=== PATIENT | female | born 1955 | race African-American/Black ===

== ENCOUNTER 2020-03-22 09:39 | Outpatient (CLI) | payer BC, SELFPAY ==
--- NOTE | ~2020-03-22 | MM_ITS ---
EXAMINATION: MM screening mango BI w arlette HISTORY: Screening mammogram TECHNIQUE: Craniocaudal and mediolateral oblique 3-D tomosynthesis images were obtained and synthetic 2-D images were generated. CAD analysis was submitted and interpreted. COMPARISON: 12/09/2018, 08/14/2017 bilateral digital screening mammogram examinations BREAST PARENCHYMAL COMPOSITION: The breasts are almost entirely fatty. FINDINGS: There is no evidence of suspicious mass, calcification, or architectural distortion to sugg est malignancy in either breast. There has been no suspicious interval change. IMPRESSION: 1. No mammographic evidence of malignancy. 2. Recommend routine screening mammography in one year. BI-RADS Category 1: Negative Reviewed, dictated and finalized at location A.
== END 2020-03-22 09:40 | disposition home or self-care (01) ==
PROVIDERS: PCP Family Medicine; Visit Provider Family Medicine
DX: Z12.31 Encounter for screening mammogram for malignant neoplasm of breast (principal)
CPT/HCPCS: 77063; 77067

== ENCOUNTER 2020-10-29 10:51 | Outpatient (CLI) | payer BC, SELFPAY ==
--- NOTE | ~2020-10-29 | XR_ITS ---
EXAMINATION: XR foot LT 2V, XR ankle LT 2V EXAM DATE: 10/29/2020 12:14 INDICATION: Multijoint pain. TECHNIQUE: Left foot frontal and lateral projections. Left ankle frontal and lateral projections. T here is no prior study for comparison. FINDINGS: There is sequela from prior left malleolar avulsion injuries. The ankle mortise appears in tact. No metatarsal stress fractures. There are no acute fractures or dislocations identified. Ther e is no subcutaneous gas. The soft tissue is unremarkable. There are no radiopaque foreign bodies. IMPRESSION: Unremarkable left foot, ankle exam. Reviewed, dictated and finalized at location A. METALS ENGRAVER HAND IMPRESSION: Unremarkable left foot, ankle exam.
--- NOTE | ~2020-10-29 | XR_ITS ---
EXAMINATION: XR sacroiliac joints min 3V EXAM DATE: 10/29/2020 12:14 INDICATION: Multijoint pain. TECHNIQUE: Frontal and bilateral oblique projections of the sacroiliac joints. There is no prior st udy for comparison. FINDINGS: Mild symmetric bilateral sacroiliac osteoarthritis. No sclerosis or erosions along the mar gins. Sacrum, sacroiliac joints, sacral arcuate lines are intact. There is mild bilateral hip primary osteoarthritis. IMPRESSION: Mild sacroiliac and hip osteoarthritis. Reviewed, dictated and finalized at location A. S SERVICE EXECUTIVE
--- NOTE | ~2020-10-29 | XR_ITS ---
EXAMINATION: XR ankle RT 2V, XR foot RT 2V EXAM DATE: 10/29/2020 12:14 INDICATION: Multijoint pain. TECHNIQUE: Right foot frontal and lateral projections. Right ankle frontal and lateral projections. There is no prior study for comparison. FINDINGS: The right ankle mortise appears intact. There is tiny inferior calcaneal spur. Metatarsal bones are unremarkable. No evidence of stress fracture. There are no acute fractures or dislocations identified. There is no subcutaneous gas. The soft tissue is unremarkable. There are no radiopaqu e foreign bodies. IMPRESSION: Tiny right calcaneal inferior spur. Reviewed, dictated and finalized at location A. ICAL PATHOLOGIST IMPRESSION: Tiny right calcaneal inferior spur.
--- NOTE | ~2020-10-29 | XR_ITS ---
EXAMINATION: XR wrist LT 2V, XR hand LT 2V EXAM DATE: 10/29/2020 12:14 INDICATION: Multiple joint pain . TECHNIQUE: Left wrist frontal and lateral projections. Left hand frontal and lateral projections. Co rrelation is made to contralateral exam same day. FINDINGS: Mild primary osteoarthritis at the left triscaphe joint, and multiple interphalangeal joint s. There are no bony erosions identified. There are no acute fractures or dislocations identified. T here is no subcutaneous gas. The soft tissue is unremarkable. There are no radiopaque foreign bodi es. IMPRESSION: Mild polyarticular left interphalangeal, triscaphe osteoarthritis. Reviewed, dictated and finalized at location A. IALIST PHYSICIAN IMPRESSION: Mild polyarticular left interphalangeal, triscaphe osteoarthritis.
--- NOTE | ~2020-10-29 | XR_ITS ---
EXAMINATION: XR wrist RT 2V, XR hand RT 2V EXAM DATE: 10/29/2020 12:14 INDICATION: Multiple joint pain. TECHNIQUE: Right hand frontal and lateral projections. Right wrist frontal and lateral projections. T here are no prior studies for comparison. FINDINGS: There is mild to moderate right 1st interphalangeal, otherwise mild interphalangeal and 1st carpometacarpal primary osteoarthritis. There are no bony erosions identified. There are no acute fr actures or dislocations identified. There is no subcutaneous gas. The soft tissue is unremarkable. There are no radiopaque foreign bodies. 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 Reviewed, dictated and finalized at location A. 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
== END 2020-10-29 10:52 ==
PROVIDERS: PCP Family Medicine
DX: M25.50 Pain in unspecified joint (principal); R53.81 Other malaise; M79.10 Myalgia, unspecified site; M89.49 Other hypertrophic osteoarthropathy, multiple sites; M77.32 Calcaneal spur, left foot; M77.31 Calcaneal spur, right foot
CPT/HCPCS: 72202; 73100; 73120; 73600; 73620

== ENCOUNTER 2024-05-20 19:36 | Observation (INO) | payer MEDICARE, SELFPAY ==
--- NOTE | ~2024-05-20 | XR_ITS ---
EXAMINATION: XR chest 2V DATE: 05/20/2024 20:26 INDICATION: Mid anterior chest pain TECHNIQUE: PA and lateral views of the chest were obtained. COMPARISON: Chest radiograph dated 10/02/2017 FINDINGS: Unchanged mild linear discoid atelectasis at the lingula with mild elevation the left hemidiaphragm. No new airspace opacities, pulmonary edema, pleural effusion or pneumothorax. The cardiomediastinal s ilhouette is normal. Mild thoracic spondylosis. IMPRESSION: 1. Unchanged mild lingular discoid atelectasis/scarring. No acute cardiopulmonary disease. Reviewed, dictated and finalized at location A. IMPRESSION: 1. Unchanged mild lingular discoid atelectasis/scarring. No acute cardiopulmona ry disease.
--- NOTE | 2024-05-20 19:38 | ECG_ITS ---
Test Date: 2024-05-20 19:55:34 Measurements Intervals [place] Rate: 58 P: 31 AR: 150 QRS: -37 QRSD: 158 T: -16 QT: 419 QTc: 413 Interpretive Statements SINUS BRADYCARDIA WITH SINUS ARRHYTHMIA MARKED LEFT AXIS DEVIATION [QRS AXIS < -30] RIGHT BUNDLE BRANCH BLOCK [120+ ms QRS DURATION, UPRIGHT V1, 40+ ms S IN I/aVL/V4/V5/V6] VOLTAGE CRITERIA FOR LVH [MEETS CRITERIA IN ONE OF: R(aVL), S(V1), R(V5), R(V5/V6)+S(V1)] PROBABLE LATERAL MYOCARDIAL INFARCTION , OF INDETERMINATE AGE [35 ms Q WAVE IN I/aVL/V5/V6] No previous ECG available for comparison Electronically Signed On 05-21-2024 15:52:36 CDT by Juan Carlos Parker M.D.
[2024-05-20 20:37] VITALS: PULSE 83
--- NOTE | 2024-05-20 20:37 | ED.GENADULT ---
HPI - General Adult General Chief complaint: Chest Pain Stated complaint: chest pain Time Seen by Provider: 05/20/24 19:52 History of Present Illness HPI narrative: patient is a 69-year-old female presents complaining department chief complaint of chest pain. Patient reports that she started having pain in her left breast that radiated to her back the patient states the pain was initially sharp reports that it is still there. The patient reports that she has had a stress test done and [facility] and has seen cardiology. The patient reports that she did have some nausea with this and reports that she felt lightheaded whenever the symptoms were happening. The patient states that she did not have diaphoresis and did not have shortness of breath. Related Data Home Medications Medication Instructions Recorded Confirmed alendronate 70 mg tablet 70 mg PO WEEKLY 05/21/24 05/21/24 amlodipine 10 mg-benazepril 40 mg 1 cap PO DAILY 05/21/24 05/21/24 capsule aspirin 81 mg capsule 81 mg PO DAILY 05/21/24 05/21/24 dorzolamide 2 % eye drops 1 drp EACH EYE HS 05/21/24 05/21/24 ezetimibe 10 mg tablet 10 mg PO DAILY 05/21/24 05/21/24 hydrocodone 5 mg-acetaminophen 325 1 tablet PO PRN PRN Pain 05/21/24 05/21/24 mg tablet metformin 500 mg tablet 500 mg PO BID 05/21/24 05/21/24 metoprolol succinate 25 mg 25 mg PO DAILY 05/21/24 05/21/24 tablet,extended release 24 hr rosuvastatin 20 mg tablet 20 mg PO HS 05/21/24 05/21/24 Allergies Allergy/AdvReac Type Severity Reaction Status Date / Time No Known Allergies Allergy Verified 05/21/24 00:27 Review of Systems Review of Systems: A 10 system review of systems was completed on the patient and is negative except for what is stated in the HPI. Nursing and ancillary documentation was reviewed. Exam Narrative: GENERAL: Well-appearing, well-nourished, and in no acute distress. HEAD: Normocephalic, atraumatic. EYES: PERRLA and EOMI. ENT: Nares clear, no rhinorrhea or epistaxis. Mucous membranes moist. NECK: Supple. CHEST: Clear to auscultation. No respiratory distress. HEART: Regular rate and rhythm. No murmur heard. Normal peripheral pulses. ABDOMEN: Soft, nontender, nondistended, normal active bowel sounds. EXTREMITIES: Normal range of motion. No edema. SKIN: Warm, dry, no rash. NEURO: No focal deficits. Alert and oriented x3. PSYCH: Normal mood and affect. Course Vital Signs Vital signs: Vital Signs Pulse Rate 83 05/20/24 20:37 Pulse Rate 82 05/20/24 23:56 Respiratory Rate 18 05/20/24 23:56 Blood Pressure 134/72 05/20/24 23:56 Pulse Oximetry 98 05/20/24 23:56 Medical Decision Making MDM Narrative Medical decision making narrative: differential diagnosis includes ACS, unstable angina, patient's EKG showed a bifascicular block. Initial troponin was negative CBC was within normal limits. Lipase was slightly elevated 346 Vital Signs Vital Signs: Vital Signs Pulse Rate 83 05/20/24 20:37 Pulse Rate 82 05/20/24 23:56 Respiratory Rate 18 05/20/24 23:56 Blood Pressure 134/72 05/20/24 23:56 Pulse Oximetry 98 05/20/24 23:56 Lab Data 05/20/24 20:00 05/20/24 20:00 Labs: Lab Results 05/20/24 05/20/24 Range/Units 20:00 23:14 WBC 9.3 (4.5-10.0) K/mm3 RBC 4.89 (4.2-5.4) M/mm3 Hgb 13.1 (12.0-15.0) g/dL Hct 41.4 (37.0-47.0) % MCV 84.7 (80-100) fl MCH 26.8 (26-34) pg MCHC 31.6 L (32-36) g/dl RDW 15.4 H (11.5-14.5) % Plt Count 265 (150-375) k/mm3 MPV 10.1 (7.4-10.4) fl Immature Gran % (Auto) 0.4 (0-0.5) % Neut % (Auto) 81.7 H (45.5-73.1) % Lymph % (Auto) 13.6 L (18.3-44.2) % [place] % (Auto) 2.8 (2.6-8.5) % Eos % (Auto) 1.1 (0-4.4) % Baso % (Auto) 0.4 (0.2-1.2) % Lymph # (Auto) 1.27 (0.9-3.2) K/mm3 [place] # (Auto) 0.3 (0.1-0.6) K/mm3 Eos # (Auto) 0.1 (0-0.3) K/mm3 Baso # (A
[2024-05-20 20:39] VITALS: BP 150/115; PULSE 81; RESP 20; O2SAT 100
[2024-05-20] MEDS: NITROGLYCERIN SL 0.4 MG TABLET SUBLINGUAL (20:39)
[2024-05-20] MEDS: Please add drug allergy info to patient profile. 1 EACH XX (20:39)
[2024-05-20 20:44] VITALS: BP 142/81; PULSE 81; RESP 24; O2SAT 98
[2024-05-20 21:43] VITALS: BP 142/79; PULSE 89; RESP 21; O2SAT 100
[2024-05-20 21:48] LABS: Basophils Percent Auto 0.4 % (0.2-1.2); Eosinophils Absolute Auto 0.1 K/mm3 (0-0.3); Eosinophils Percent Auto 1.1 % (0-4.4); Hematocrit 41.4 % (37.0-47.0); Hemoglobin 13.1 g/dL (12.0-15.0); Immature Granulocyte Absolute 0.04 K/mm3 (0.00-0.031); Immature Granulocyte Percent A 0.4 % (0-0.5); Lymphocytes Absolute Auto 1.27 K/mm3 (0.9-3.2); Lymphocytes Percent Auto 13.6 % (18.3-44.2); Mean Corpuscular HGB Conc 31.6 g/dl (32-36); Mean Corpuscular Hemoglobin 26.8 pg (26-34); Mean Corpuscular Volume 84.7 fl (80-100); Mean Platelet Volume 10.1 fl (7.4-10.4); Monocytes Absolute Auto 0.3 K/mm3 (0.1-0.6); Monocytes Percent Auto 2.8 % (2.6-8.5); Neutrophils Absolute Auto 7.6 K/mm3 (1.3-6.7); Neutrophils Percent Auto 81.7 % (45.5-73.1); Platelet Count Result 265 k/mm3 (150-375); Red Blood Count 4.89 M/mm3 (4.2-5.4); Red Cell Distribution Width 15.4 % (11.5-14.5); White Blood Count 9.3 K/mm3 (4.5-10.0)
[2024-05-20 21:58] LABS: Alanine Aminotransferase 20 U/L (6-35); Albumin Level 4.9 g/dL (3.5-5.1); Alkaline Phosphatase 67 U/L (38-126); Anion Gap 16 mmol/L (4-12); Aspartate Amino Transferase 34 U/L (14-36); Bilirubin,Total 0.5 mg/dL (0.2-1.3); Blood Urea Nitrogen 11 mg/dL (7-17); Calcium 9.4 mg/dL (8.4-10.2); Carbon Dioxide 23 mmol/L (22-30); Chloride 102 mmol/L (98-107); Estimated CRCL calculation 80 ml/min; Estimated Glomerular Filt Rate > 60; Glucose 149 mg/dL (65-110); Lipase 346 U/L (23-300); Potassium 3.8 mmol/L (3.4-5.0); Sodium 141 mmol/L (137-145)
[2024-05-20 21:59] LABS: Partial Thromboplastin Time 25.2 Seconds (22.3-36.8); Prothrombin Time 13.1 Seconds (11.1-14.7)
[2024-05-20 22:10] LABS: Troponin I < 0.012 ng/mL (0.000-0.034)
[2024-05-20 23:39] LABS: Troponin I < 0.012 ng/mL (0.000-0.034)
[2024-05-20 23:56] VITALS: BP 134/72; PULSE 82; RESP 18; O2SAT 98
[2024-05-21] VITALS (12 sets, daily range): BP systolic 118–146; BP diastolic 67–76; PULSE 61–84; RESP 14–21; TEMP 36.4–36.8; O2SAT 97–100
[2024-05-21] MEDS: HYDROcodone/acetaminophen (*CRX) 5-325 MG TABLET 1 TAB PO (00:42)
[2024-05-21 02:23] LABS: Troponin I < 0.012 ng/mL (0.000-0.034)
--- NOTE | 2024-05-21 02:31 | ADMGEN ---
This patient, Paola Lopez, was admitted to IMU Room 200-01 at 0208. Patient/family oriented to hospital policies and general routines including ID bracelet, bed and alarms, visiting hours, pain management, procedures, bathroom and other care routines, personal items, smoking policy, room service/diet, and visiting hours. Information on how to activate the Rapid Response Team has been discussed. Patient/Family are encouraged to report perceived risks to care and to ask questions if they do not understand what they are told or what they should do.
[2024-05-21 07:50] LABS: Glucose Point of Care 107 mg/dl (65-105)
[2024-05-21] MEDS: ASPIRIN 81 MG CHEWABLE TABLET PO (08:12)
[2024-05-21 10:14] LABS: Cholesterol 109 mg/dL (0-200); HDL Direct 28 mg/dL; Triglycerides 423 mg/dL (<150)
[2024-05-21 10:24] LABS: LDL Cholesterol Direct 40 mg/dL
--- NOTE | 2024-05-21 13:54 | PM.CNCAR ---
Assessment and Plan Assessment and plan (1) Chest pain: Code(s): R07.9 - Chest pain, unspecified Status: Acute Assessment and Plan: Chest pain is atypical. EKG without ischemic changes. Troponins negative x 3. Stress test in December 2023 negative per patient. At this time, she does not need further inpatient cardiac testing. Recommend outpatient follow up with her audiovisual librarian. Consider GI etiology -- has epigastric tenderness, lipase mildly elevated. Chest pain started about 45 minutes after eating when she laid down. Recommendations and plan discussed with Hospitalist. Cardiology will sign off at this time. Please call us back if needed. History of Present Illness History of Present Illness Consult date/time: 05/21/24 13:54 Requesting physician: Chelsie Braswell MD Consult reason: chest pain Reason For Visit: chest pain Narrative: Paola is a 69 year old female who presented with chest pain. She had finished eating around 5:15 PM, and then laid down around 6PM. Developed substernal / epigastric chest pain that was sharp, diffuse across the chest. Currently she is chest pain free. Had a stress test in December 2023 at [facility], that she notes was normal. Had an echocardiogram done subsequently, however, she does not remember the results of the echo. She is currently feeling well. EKG shows sinus rhythm with RBBB. No prior EKG available for comparison. Troponins are negative x 3. Lipase elevated at 346. Review of Systems Review of Systems: All systems reviewed & are unremarkable except as noted in HPI and below (HPI) [facility] Family History Family History Sibling Hypertension Kidney transplant recipient Mother Cervical cancer Social History Social History Smoking packs per day: 0.5 Smoking cigarettes per day: 10.0 Years smoked: 19 Smoking pack-years: 9.50 Smoking status: Former smoker Alcohol intake: never Substance use: never Do You Feel Safe in your Home?: Yes Lack of Transportation: No Lack of Food: Never True Current Housing: I Have Housing Concerned About Future Housing: No Difficulty Paying Gas/Electric Bills: No Difficulty Paying for Meds: No Currently Unemployed: No Education: High School Diploma/GED Difficulty w/ Childcare or Family Care: No Spiritual care concerns: No Meds Home Medications and Allergies Home Medications Medication Instructions Recorded Confirmed Type alendronate 70 mg tablet 70 mg PO WEEKLY 05/21/24 05/21/24 History amlodipine 10 mg-benazepril 40 mg 1 cap PO DAILY 05/21/24 05/21/24 History capsule aspirin 81 mg capsule 81 mg PO DAILY 05/21/24 05/21/24 History dorzolamide 2 % eye drops 1 drp EACH EYE HS 05/21/24 05/21/24 History ezetimibe 10 mg tablet 10 mg PO DAILY 05/21/24 05/21/24 History hydrocodone 5 mg-acetaminophen 325 1 tablet PO PRN PRN Pain 05/21/24 05/21/24 History mg tablet metformin 500 mg tablet 500 mg PO BID 05/21/24 05/21/24 History metoprolol succinate 25 mg 25 mg PO DAILY 05/21/24 05/21/24 History tablet,extended release 24 hr rosuvastatin 20 mg tablet 20 mg PO HS 05/21/24 05/21/24 History Allergies Allergy/AdvReac Type Severity Reaction Status Date / Time No Known Allergies Allergy Verified 05/21/24 00:27 Vital Signs Vital Signs - 24 hr 05/20/24 20:37 05/20/24 20:39 05/20/24 20:44 Temperature Pulse Rate 83 81 81 Respiratory Rate 20 24 H Blood Pressure 150/115 H 142/81 H Pulse Oximetry 100 98 Oxygen Delivery 05/20/24 21:43 05/20/24 23:56 05/21/24 01:40 Temperature 36.8 C Pulse Rate 89 82 76 Respiratory Rate 21 H 18 21 H Blood Pressure 142/79 H 134/72 130/71 Pulse Oximetry 100 98 98 Oxygen Delivery 05/21/24 02:08 05/21/24 02:00 05/21/24 02:31 Temperature 36.5 C Pulse Rate 82 77 Respiratory Rate 21 H Blood Pressure 146/67 H Pulse Oximetr
--- NOTE | 2024-05-21 13:58 | PM.SD2 ---
Same Day Admit/Disch: HPI History of Present Illness Chief complaint: chest pain Narrative: Paola Lopez is a 69 year old female admitted with chest pain central chest area worse on lying down. Pt describes pain moving to her neck. not associated with sob, nausea or sweating. Pt had recent stress test done at [facility] and has seen cardiology there. Stress test done there was negative. After discussion with cardiology MD - chest pain appear more atypical in nature either gastritis or pancreatitis related. No cardiac is nature no need for any further cardiac investigations. Pt prefers to go home advised plan foods and PPI and less fatty foods as her triglycerides are high and her lipase is slightly elevated. [facility] Family History Family History Sibling Hypertension Kidney transplant recipient Mother Cervical cancer Social History Social History Smoking packs per day: 0.5 Smoking cigarettes per day: 10.0 Years smoked: 19 Smoking pack-years: 9.50 Smoking status: Former smoker Alcohol intake: never Substance use: never Do You Feel Safe in your Home?: Yes Lack of Transportation: No Lack of Food: Never True Current Housing: I Have Housing Concerned About Future Housing: No Difficulty Paying Gas/Electric Bills: No Difficulty Paying for Meds: No Currently Unemployed: No Education: High School Diploma/GED Difficulty w/ Childcare or Family Care: No Spiritual care concerns: No Same Day Admit/Disch: Med Pre-admit Medications Home Medications Medication Instructions Recorded Confirmed Type alendronate 70 mg tablet 70 mg PO WEEKLY 05/21/24 05/21/24 History amlodipine 10 mg-benazepril 40 mg 1 cap PO DAILY 05/21/24 05/21/24 History capsule aspirin 81 mg capsule 81 mg PO DAILY 05/21/24 05/21/24 History dorzolamide 2 % eye drops 1 drp EACH EYE HS 05/21/24 05/21/24 History ezetimibe 10 mg tablet 10 mg PO DAILY 05/21/24 05/21/24 History hydrocodone 5 mg-acetaminophen 325 1 tablet PO PRN PRN Pain 05/21/24 05/21/24 History mg tablet metformin 500 mg tablet 500 mg PO BID 05/21/24 05/21/24 History metoprolol succinate 25 mg 25 mg PO DAILY 05/21/24 05/21/24 History tablet,extended release 24 hr rosuvastatin 20 mg tablet 20 mg PO HS 05/21/24 05/21/24 History Review of Systems Review of Systems Mild chest pain, all other 12 systems are reviewed and negative Exam Const: General: cooperative, healthy appearing and overweight; No in distress Nutritional Appearance: overweight Orientation/consciousness: oriented to person HENMT: Head: normal to inspection Resp: Effort & Inspection: no respiratory distress Auscultation: no rhonchi and no wheezes Cardio: Rate: regular rate Rhythm: regular rhythm GI: Inspection: normal to inspection GI Palp: No abdominal tenderness, No Guarding due to palpation present (GI) and No Hepatomegaly present Auscultation: normal bowel sounds Neuro: General: oriented to person DS: Data Data Completed and Pending Labs on day of discharge: Labs from last 24 hours 05/21/24 05/21/24 05/20/24 07:36 01:57 23:14 WBC RBC Hgb Hct MCV MCH MCHC RDW Plt Count MPV Immature Gran % (Auto) Neut % (Auto) Lymph % (Auto) [place] % (Auto) Eos % (Auto) Baso % (Auto) Lymph # (Auto) [place] # (Auto) Eos # (Auto) Baso # (Auto) Abs Immat Gran (auto) Absolute Neuts (auto) Absolute Nucleated RBC Nucleated RBC % PT INR APTT Sodium Potassium Chloride Carbon Dioxide Anion Gap BUN Creatinine Estim Creat Clear Calc Estimated GFR Glucose POC Capillary Glucose 107 H Calcium Total Bilirubin AST ALT Alkaline Phosphatase Troponin I < 0.012 < 0.012 Total Protein Albumin Triglycerides 423 H Cholestero
== END 2024-05-21 15:17 | disposition home or self-care (01) ==
LOC: ANHED 05-21 00:14 → ANHIMU 05-21 02:01
PROVIDERS: Admitting Provider Internal Medicine; Emergency Provider Emergency Medicine; PCP Family Medicine; Visit Provider Family Medicine
DX: R07.9 Chest pain, unspecified (principal); M54.9 Dorsalgia, unspecified; Z79.82 Long term (current) use of aspirin; Z87.891 Personal history of nicotine dependence
CPT/HCPCS: 36415; 71046; 80053; 80061; 82948; 83690; 84484; 85025; 85610; 85730; 93005; 99285; A9270; G0378

== ENCOUNTER 2024-10-27 16:16 | Emergency (ER) | payer OTHER, MEDICARE, SELFPAY ==
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
--- OUTSIDE RECORDS SUMMARY | 2024-10-27 16:41 | XMS_ITS | Encounter Summary ---
Author Organization [facility] Facility Care Team Providers Care Viscose Cellar Worker Name Role Phone Esperanza Kowalski MD Primary Care Provider [phone] Unknown, Notinfile Primary Care Provider Unavail able Esperanza Kowalski MD Primary Care Provider [phone] Unknown, Notinfile Primary Care Provider Unavail able Esperanza Kowalski MD Primary Care Provider [phone] Jase Farias MD Primary Care Provider [phone] Maximilian Parish MD Primary Care Provider Jase Farias MD Primary Care Provider [phone] Encounter Details Date Type Department Care Team (Latest Contact Info) Description 09/15/2016 Orders Only [facility] CLINCONV ProviderNickolas MD [address] [place] [id number] Social History Tobacco Use Types Packs/Day Years Used Date Smoking Tobacco: Never Assessed Comments Unknown Sex and Gender Information Value Date Recorded Sex Assigned at Not on file Legal Sex Female 11:52 PM FAMILY SERVICE AIDE Gender Identity Not on file Sexual Orientation Not on file documented as of this encounter Plan of Treatment Not on file documented as of this encounter Procedures Procedure Name Priority Date/Time Associated Diagnosis Comments SCAN - LABS 09/15/2016 12:00 AM FAMILY SERVICE AIDE documented in this encounter Results * SCAN - LABS (09/15/2016 12:00 AM FAMILY SERVICE AIDE) Narrative 09/15/2016 12:00 AM FAMILY SERVICE AIDE Ordered by an unspecified provider. us Historical Provider Final Res ult documented in this encounter Visit Diagnoses Not on filedocumented in this encounter Additional Health Concerns Infection Onset Date Last Indicated Resolved Time COVID19 Comment:Results from 09/17 verified and to be scanned in. 09/27/2020 09/27/2020 10/20/2020 3:05 AM FAMILY SERVICE AIDE COVID: Recovered Comment:Added based on recent COVID infection. 10/20/2020 10/29/2020 02/17/2021 3:05 AM C DT documented as of this encounter Care Teams Viscose Cellar Worker Relationship Specialty Start Date End Date Esperanza Kowalski MD PCP - General 01/22/17 07/17/17 Unknown, Notinfile PCP - General 07/18/17 07/18/17 Esperanza Kowalski MD PCP - General 07/19/17 10/16/17 Unknown, Notinfile PCP - General 10/17/17 02/17/18 Esperanza Kowalski MD PCP - General 02/18/18 10/27/19 Jase Farias MD PCP - General Family Medicine 10/28/19 10/09/22 Maximilian Parish MD PCP - General Family Medicine 10/10/22 03/27/23 Jase Farias MD PCP - General Family Medicine 01/17/24 documented as of this encounter
--- OUTSIDE RECORDS SUMMARY | 2024-10-27 16:41 | XMS_ITS | Encounter Summary ---
Author Organization [facility] Facility Care Team Providers Care Installers Mechanical Name Role Phone Esperanza Kowalski MD Primary Care Provider [phone] Unknown, Notinfile Primary Care Provider Unavail able Esperanza Kowalski MD Primary Care Provider [phone] Unknown, Notinfile Primary Care Provider Unavail able Esperanza Kowalski MD Primary Care Provider [phone] Jase Farias MD Primary Care Provider Maximilian Parish MD Primary Care Provider [phone] Jase Farias MD Primary Care Provider [phone] Encounter Details Date Type Department Care Team (Latest Contact Info) Description 08/07/2016 Orders Only [facility] CLINCONV ProviderNickolas MD [address] [place] [id number] Social History Tobacco Use Types Packs/Day Years Used Date Smoking Tobacco: Never Assessed Comments Unknown Sex and Gender Information Value Date Recorded Sex Assigned at Not on file Legal Sex Female 11:52 PM SUCTION ROLLER Gender Identity Not on file Sexual Orientation Not on file documented as of this encounter Plan of Treatment Not on file documented as of this encounter Procedures Procedure Name Priority Date/Time Associated Diagnosis Comments SCAN - LABS 08/08/2016 12:00 AM SUCTION ROLLER documented in this encounter Results * SCAN - LABS (08/08/2016 12:00 AM SUCTION ROLLER) Narrative 08/08/2016 12:00 AM SUCTION ROLLER Ordered by an unspecified provider. us Historical Provider Final Res ult documented in this encounter Visit Diagnoses Not on filedocumented in this encounter Additional Health Concerns Infection Onset Date Last Indicated Resolved Time COVID19 Comment:Results from 09/17 verified and to be scanned in. 09/27/2020 09/27/2020 10/20/2020 3:05 AM SUCTION ROLLER COVID: Recovered Comment:Added based on recent COVID infection. 10/20/2020 10/29/2020 02/17/2021 3:05 AM C DT documented as of this encounter Care Teams Installers Mechanical Relationship Specialty Start Date End Date Esperanza [...]
--- OUTSIDE RECORDS SUMMARY | 2024-10-27 16:41 | XMS_ITS | Encounter Summary ---
Author Organization [facility] Facility Care Team Providers Care Hides Soaker Name Role Phone Esperanza Kowalski MD Primary Care Provider [phone] Unknown, Notinfile Primary Care Provider Unavail able Esperanza Kowalski MD Primary Care Provider [phone] Unknown, Notinfile Primary Care Provider Unavail able Esperanza Kowalski MD Primary Care Provider [phone] Jase Farias MD Primary Care Provider [phone] Maximilian Parish MD Primary Care Provider [phone] Jase Farias MD Primary Care Provider [phone] Encounter Details Date Type Department Care Team (Latest Contact Info) Description 05/08/2016 Orders Only [facility] ProviderNickolas MD [address] [place] [id number] Social History Tobacco Use Types Packs/Day Years Used Date Smoking Tobacco: Never Assessed Comments Unknown Sex and Gender Information Value Date Recorded Sex Assigned at Not on file Legal Sex Female 11:52 PM PEDIATRIC LPN Gender Identity Not on file Sexual Orientation Not on file documented as of this encounter Plan of Treatment Not on file documented as of this encounter Procedures Procedure Name Priority Date/Time Associated Diagnosis Comments SCAN - LABS 05/15/2016 12:00 AM CDT documented in this encounter Results * SCAN - LABS (05/15/2016 12:00 AM CDT) Narrative 05/15/2016 12:00 AM CDT Ordered by an unspecified provider. us Historical Provider Final Res ult documented in this encounter Visit Diagnoses Not on filedocumented in this encounter Additional Health Concerns Infection Onset Date Last Indicated Resolved Time COVID19 Comment:Results from 09/17 verified and to be scanned in. 09/27/2020 09/27/2020 10/20/2020 3:05 AM PEDIATRIC LPN COVID: Recovered Comment:Added based on recent COVID infection. 10/20/2020 10/29/2020 02/17/2021 3:05 AM C DT documented as of this encounter Care Teams Hides Soaker Relationship Specialty Start Date End Date Esperanza [...]
--- OUTSIDE RECORDS SUMMARY | 2024-10-27 16:41 | XMS_ITS | Referral Summary ---
Author Organization [facility] Address [address] [place] [address] Care Team Providers Care Cement Kiln Operator Name Role Phone Jase Farias MD Primary Care Provider [phone] Source Comments [facility],non-owned Affiliates and Associated Physician Practices is amultiple site organization consisting of ambulatory clinics and hospital sitesin [place], [place], [place] and [place]. This disclosure is being madepursuant to the Care Everywhere program and may not contain all information available regarding this patient. Last updated 18.[facility] Encounters Date Type Department Care Team Description 07/29/2024 Travel 07/29/2024 9:30 AM CDT Office Visit [facility] - SPECIALTY THERAPIST [address], [facility] [address] [place] [address] Hermilo Tam Che, MD Cystocele, midline (Primary Dx) from Last 3 Months Allergies Active Allergy Reactions Criticality Noted Date Comments Sulfamethoxazole W-Trimethoprim Swelling 10/02 Tramadol Other Low 11/20/2019 weak Medications * Be aware that medications may not be up to date on this document. Alwaysverify current medications with the patient. Medication Sig Dispensed Refills Start Date End Date Status dorzolamide-timolol (COSOPT) 22.3-6.8 MG/ML ophthalmic solution Instill 1 (one) drop into both eyes 2 times daily 12/11/2016 Active difluprednate (Durezol) 0.05 % ophthalmic suspension INSTILL 1 DROP INTO RIGHT EYE TWICE A DAY AND 1 DROP EVERY DAY INTO LEFT EYE 02/21/2017 Active amLODIPine besy-benazepril 10-40 MG Take 1 (one) capsule by mouth once daily 5 01/31/2018 Active metoprolol succinate XL 24hr (TOPROL XL) 25 MG tablet Take 1 (one) tablet by mouth once daily 5 06/07/2018 Active aspirin EC (ECOTRIN) 81 MG tablet Take 1 (one) tablet by mouth once daily Active famotidine (Pepcid) 20 MG tablet 07/12/2022 Active HYDROcodone-acetaminop hen ([place]) 5-325 MG tablet Take 1 (one) tablet by mouth 2 times daily as needed For pain. 08/30/2022 Active alendronate (Fosamax) 70 MG tablet Take 1 (one) tablet by mouth 07/01/2023 Active metFORMIN (Glucophage) 500 MG tablet Take 1 (one) tablet by mouth 2 times daily 06/28/2023 Active rosuvastatin (Crestor) 10 MG tablet Take 1 (one) tablet by mouth once daily 06/27/2023 Active estradiol (Estrogel) 0.75 MG/1.25 GM (0.06%) gel Active Zetia 10 MG tablet Take 1 tablet every day by oral route for 90 days. 07/24/2024 Active hydroCHLOROthiazide (Hydrodiuril) 25 MG tablet Active losartan (Cozaar) 50 MG tablet Active meloxicam (Mobic) 15 MG tablet Take 1 tablet every day by oral route for 90 days. 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 Midline cystocele 02/12/2017 Cystocele, lateral 02/12/2017 Vaginal vault prolapse 02/12/2017 Acne 07/06/2016 Essential hypertension 04/05/2016 Resolved Problems Problem Noted Date Diagnosed Date Resolved Date Constipation 06/15/2015 08/25/2021 Social History Tobacco Use Types Packs/Day Years Used Date Smoking Tobacco: Former Cigarettes Q uit: 11/03/1992 Smokeless Tobacco: Former Tobacco Cessation:Counseling Given: Not Answered Alcohol Use Standard Drinks/Week Comments No 0 (1 standard drink = 0.6 oz pur e alcohol) Sex and Gender Information Value Date Recorded Sex Assigned at Not on file Gender Identity Not on file Sexual Orientation Not on file Last Filed Vital Signs Vital Sign Reading Time Taken Comments Blood Pressure 132/64 07/29/2024 9:16 AM CDT Pulse 62 09/07/2022 8:26 AM CREDIT ADMINISTRATION SPECIALIST Temperature 36.5 ??C (97.7 ??F) 08/01/2023 9:17 AM CD T Respiratory Rate 16 02/13/2017 8:12 AM CDT Oxygen Saturation 99% 09/07/2022 8:26 AM CREDIT ADMINISTRATION SPECIALIST Inhaled Oxygen Concentration - - Weight 78.9 kg (174 lb) 07/29/2024 9:16 AM CDT Height 165.1 cm (5' 5 ) 07/29/2024 9:16 AM CDT Body Mass Index 28.96 07/29/2024 9:16 AM CDT Functional Status Functional Status Response Date of Assess ment Is person deaf or have serious hearing difficult y? No 02/12/2017 Is person blind or have serious difficulty seein g? No 02/12/2017 Does person have serious dif ficulty walking/climbing stairs? No 02/12/2017 Does person have difficulty dressing/bathing? No 02/12/2017 Does person have difficulty doing errands alone? No 02/12/2017 Cognitive Status Response Date of Assessm ent Does person have difficulty concentrating/remembering/making decisions? No 02/12/2017 Plan of Treatment Not on file Medical Devices Implanted Type Area Literacy Education Professor Device Identifier Shelf Expiration Date Model / Serial / Lot Grft Tiss Rep Xenform 6 X 10cm - [id number] Implanted:Qty: 1 on 11/03/2013 by Hermilo Tam Che, MD at [facility] [employer] 03/30/2016 [id number] / [id number] / [id number] Graft Tissue Xenform Ftl Bvn Drml Mtrx Implanted:Qty: 1 on 02/12/2017 by Hermilo Tam Che, MD at [facility] [employer] 01/28/2019 [id number] / / [id number] Procedures Procedure Name Priority Date/Time Associated Diagnosis Comments BASIC METABOLIC PANEL (CALCIUM TOTAL) Routine 02/01/2017 1:28 PM CDT from Last 3 Months or Most Recently Relevant to Health Maintenance Results * BASIC METABOLIC PANEL (CALCIUM TOTAL) (02/01/2017 1:28 PM CDT) Glucose 94 65 - 99 mg/dL [facility] BUN 10 8 - 27 mg/dL [facility] Creatinine 0.68 0.57 - 1.00 mg/dL [facility]) eGFR non- 95 >59 mL/min/1.7 3 [facility] eGFR 110 >59 mL/min/1.7 3 [facility] BUN/Creatinine Ratio 15 12 - 28 [facility] Sodium 143 134 - 144 mmol/L [facility]) Potassium 3.8 3.5 - 5.2 mmol/L [facility] Chloride 106 96 - 106 mmol/L [facility]) CO2 20 18 - 29 mmol/L [facility] Calcium 9.2 8.7 - 10.3 mg/dL [facility]) Blood specimen (specimen) BLOOD SPECIMEN / Unknown 02/01/2017 1:28 PM CDT 02/01/2017 Narrative [facility] ([facility]) - 02/02/2017 7:14 AM CDT Performed at: ??[address], [place] [id number] Salesperson Women'S Dresses: Antoni Zamudio PhD, Phone: ??[phone] Jessica Darvin Ron [employer]MM[employer] METAL CLEANER-RELIGIOUS EDUCATION DIRECTOR LAB - CHEMI STRY ORDERABLES [facility] ([facility] from Last 3 Months or Most Recently Relevant to Health Maintenance Advance Directives * Full Code (Latest Code Status on File) Date Activated Date Inactivated Comments 02/12/2017 4:27 PM 02/13/2017 10:36 AM * FULL RESUSCITATION Date Activated Date Inactivated Comments 11/03/2013 2:46 PM 11/04/2013 11:37 AM Care Teams Cement Kiln Operator Relationship Specialty Start Date End Date Jase Farias MD [address] [place] [phone] PCP - General Family Medicine 08/01/23
--- OUTSIDE RECORDS SUMMARY | 2024-10-27 16:41 | XMS_ITS | Patient Health Summary ---
Author Organization [facility] [place] Address [address] [place] [address] Care Team Providers Care Dishwasher Name Role Phone Jase Farias MD Primary Care Provider [phone] Note from [facility],non-owned Affiliates and Associated Physician Practices is amultiple site organization consisting of ambulatory clinics and hospital sitesin [place], [place], [place] and [place]. This disclosure is being madepursuant to the Care Everywhere program and may not contain all information available regarding this patient. Last updated 18.[facility] Allergies * Sulfamethoxazole W-Trimethoprim(Swelling) * Tramadol(Other) -Low Criticality Medications * Be aware that medications may not be up to date on this document. Alwaysverify current medications with the patient. * dorzolamide-timolol (COSOPT) 22.3-6.8 MG/ML ophthalmic solution(Started 12/11/2016) Instill 1 (one) drop into both eyes 2 times daily * difluprednate (Durezol) 0.05 % ophthalmic suspension(Started 02/21/2017) INSTILL 1 DROP INTO RIGHT EYE TWICE A DAY AND 1 DROP EVERY DAY INTO LEFT EYE * amLODIPine besy-benazepril 10-40 MG(Started 01/31/2018) Take 1 (one) capsule by mouth once daily 5 refills left * metoprolol succinate XL 24hr (TOPROL XL) 25 MG tablet(Started 06/07/2018) Take 1 (one) tablet by mouth once daily 5 refills left * aspirin EC (ECOTRIN) 81 MG tablet Take 1 (one) tablet by mouth once daily * famotidine (Pepcid) 20 MG tablet(Started 07/12/2022) * HYDROcodone-acetaminophen ([place]) 5-325 MG tablet(Started 08/30/2022) Take 1 (one) tablet by mouth 2 times daily as needed For pain. * alendronate (Fosamax) 70 MG tablet(Started 07/01/2023) Take 1 (one) tablet by mouth * metFORMIN (Glucophage) 500 MG tablet(Started 06/28/2023) Take 1 (one) tablet by mouth 2 times daily * rosuvastatin (Crestor) 10 MG tablet(Started 06/27/2023) Take 1 (one) tablet by mouth once daily * estradiol (Estrogel) 0.75 MG/1.25 GM (0.06%) gel * Zetia 10 MG tablet(Started 07/24/2024) Take 1 tablet every day by oral route for 90 days. * hydroCHLOROthiazide (Hydrodiuril) 25 MG tablet * losartan (Cozaar) 50 MG tablet * meloxicam (Mobic) 15 MG tablet Take 1 tablet every day by oral route for 90 days. Active Problems Problem Noted Date Diagnosed Date Gastroesophageal reflux disease without esophagi tis 10/30/2022 08/01/2023 Sacroiliitis 10/30/2022 08/01/2023 Menopause present 10/30/2022 08/01/2023 Glaucoma 09/27/2020 Hyperlipidemia [...] AM CDT Pulse 62 09/07/2022 8:26 AM SHEET COMBINING OPERATOR Temperature 36.5 ??C (97.7 ??F) 08/01/2023 9:17 AM CD T Respiratory Rate 16 02/13/2017 8:12 AM CDT Oxygen Saturation 99% 09/07/2022 8:26 AM SHEET COMBINING OPERATOR Inhaled Oxygen Concentration - - Weight 78.9 kg (174 lb) 07/29/2024 9:16 AM CDT Height 165.1 cm (5' 5 ) 07/29/2024 9:16 AM CDT Body Mass Index 28.96 07/29/2024 9:16 AM CDT Medical Devices Implanted Type Area Casualty Claim Adjuster Device Identifier Shelf Expiration Date Model / Serial / Lot Grft Tiss Rep Xenform 6 X 10cm - [id number] Implanted:Qty: 1 on 11/03/2013 by Hermilo Tam Che, MD at [facility] [employer] 03/30/2016 [id number] / [id number] / [id number] Graft Tissue Xenform Ftl Bvn Drml Mtrx Implanted:Qty: 1 on 02/12/2017 by Hermilo Tam Che, MD at [facility] [employer] 01/28/2019 [id number] / / [id number] Procedures * CARDIAC RHYTHM STRIP ORDER(Performed 02/14/2017) * LAB RESULTS ORDER(Performed 02/14/2017) * ENDOTRACHEAL TUBE NOTE(Performed 02/12/2017) * CYSTOSCOPY (FLEXIBLE/RIGID)(Performed 02/12/2017) Performed for Midline cystocele * COLPOPEXY SACROSPINOUS (VAGINAL APPROACH)(Performed 02/12/2017) Performed for Midline cystocele * COLPORRHAPHY ANTERIOR REPAIR(Performed 02/12/2017) Performed for Midline cystocele * BASIC METABOLIC PANEL (CALCIUM TOTAL)(Performed 02/01/2017) * CBC W AUTO DIFFERENTIAL(Performed 02/01/2017) * CARDIAC RHYTHM STRIP ORDER(Performed 11/05/2013) * PATHOLOGY TISSUE EXAM (STL)(Performed 11/03/2013) Performed for Uterovaginal prolapse, incomplete * CULTURE URINE(Performed 11/03/2013) Performed for Butt catheter in place * CYSTOSCOPY (FLEXIBLE/RIGID)(Performed 11/03/2013) Performed for Perineocele, Rectocele, Cystocele, midline, Uterovaginal prolapse, incomplete * PERINEOPLASTY(Performed 11/03/2013) Performed for Perineocele, Rectocele, Cystocele, midline, Uterovaginal prolapse, incomplete * HYSTERECTOMY VAGINAL WITH ANTERIOR/POSTERIOR REPAIR(Performed 11/03/2013) Performed for Perineocele, Rectocele, Cystocele, midline, Uterovaginal prolapse, incomplete * PATHOLOGY/GENETICS HISTORICAL-ONBASE(Performed 11/03/2013) * BLOOD TYPE VERIFICATION(Performed 10/30/2013) * TYPE + SCREEN PANEL(Performed 10/30/2013) Performed for Preop examination * BASIC METABOLIC PANEL (CALCIUM TOTAL)(Performed 10/30/2013) Performed for Preop examination * CBC W AUTO DIFFERENTIAL(Performed 10/30/2013) Performed for Preop examination * URINALYSIS W/MICROSCOPIC NO CULTURE(Performed 10/07/2013) Results * LAB RESULTS ORDER (02/14/2017 11:02 PM CDT) Narrative 02/14/2017 11:02 PM CDT Ordered by an unspecified provider. Scanned Document LAB - THERAPEUTIC DR UG MONITORING ORDERABLES * CARDIAC RHYTHM STRIP ORDER (02/14/2017 11:02 PM CDT) Only the most recent of2 resultswithin the time period is included. Narrative 02/14/2017 11:02 PM CDT Ordered by an unspecified provider. Scanned Document CARDIAC SERVICES ORD ERABLES * (ABNORMAL) CBC W AUTO DIFFERENTIAL (02/01/2017 1:28 PM CDT) Only the most recent of2 resultswithin the time period is included. WBC 5.1 3.4 - 10.8 x10E3/uL [facility] (BEAKER) RBC 4.61 3.77 - 5.28 x10E6/uL [facility] (BEAKER) Hemoglobin 12.2 11.1 - 15.9 g/dL [facility] (BEAKER) Hematocrit 36.0 34.0 - 46.6 % [facility] (BEAKER) MCV 78(L) 79 - 97 fL [facility] (BEAKER) MCH 26.5(L) 26.6 - 33.0 pg [facility] (BEAKER) MCHC 33.9 31.5 - 35.7 g/dL [facility] (BEAKER) RDW-CV 16.0(H) 12.3 - 15.4 % [facility] (BEAKER) Platelet 265 150 - 379 x10E3/uL [facility] (BEAKER) Neutrophils % 54 % [facility] (BEAKER) Lymphocytes % 33 % [facility] (BEAKER) Monocytes % 9 % [facility] (BEAKER) Eosinophils % 4 % [facility] (BEAKER) Basophil % 0 % [facility] (BEAKER) Neutrophils Absolute 2.8 1.4 - 7.0 x10E3/uL [facility] (BEAKER) Lymphocyte Absolute Manual 1.7 0.7 - 3.1 x10E3/uL [facility] (BEAKER) Monocytes Absolute 0.5 0.1 - 0.9 x10E3/uL [facility] (BEAKER) Eosinophils Absolute Manual 0.2 0.0 - 0.4 x10E3/uL [facility] (BEAKER) Basophil Absolute Manual 0.0 0.0 - 0.2 x10E3/uL [facility] (BEAKER) Immature Granulocytes % 0 % [facility] (BEAKER) Immature Granulocytes absolute 0.0 0.0 - 0.1 x10E3/uL [facility] (BEAKER) Blood specimen (specimen) BLOOD SPECIMEN / Unknown 02/01/2017 1:28 PM CDT 02/01/2017 Narrative [facility] (BEAKER) - 02/02/2017 7:14 AM CDT Performed at: ??01 - [facility] [address] ??[id number] Cafe Aide: Antoni Zamudio PhD, Phone: ??[phone] Jessica Velasquez CONTACT ASSEMBLER-CLIENT SERVICE COORDINATOR LAB - HEMAT OLOGY ORDERABLES [facility] MARTITA LLANOS) * BASIC METABOLIC PANEL (CALCIUM TOTAL) (02/01/2017 1:28 PM CDT) Only the most recent of2 resultswithin the time period is included. Glucose 94 65 - 99 mg/dL [facility] (BEAKER) BUN 10 8 - 27 mg/dL [facility] (BEAKER) Creatinine 0.68 0.57 - 1.00 mg/dL [facility] (BEAKER) eGFR non- 95 >59 mL/min/1.7 3 [facility] (BEAKER) eGFR 110 >59 mL/min/1.7 3 [facility] (BEAKER) BUN/Creatinine Ratio 15 12 - 28 [facility] (BEAKER) Sodium 143 134 - 144 mmol/L [facility] (BEAKER) Potassium 3.8 3.5 - 5.2 mmol/L [facility] (BEAKER) Chloride 106 96 - 106 mmol/L [facility] (BEAKER) CO2 20 18 - 29 mmol/L [facility] (BEAKER) Calcium 9.2 8.7 - 10.3 mg/dL [facility] (BEAKER) Blood specimen (specimen) BLOOD SPECIMEN / Unknown 02/01/2017 1:28 PM CDT 02/01/2017 Narrative [facility] ([place]) - 02/02/2017 7:14 AM CDT Performed at: ??01 - [address] ??[id number] Cafe Aide: Antoni Zamudio PhD, Phone: ??[phone] Jessica Velasquez CONTACT ASSEMBLER-CLIENT SERVICE COORDINATOR LAB - CHEMI STRY ORDERABLES [facility] MARTITA LLANOS) * GROSS + MICRO EXAM (STL) (11/03/2013 9:57 AM SHEET COMBINING OPERATOR) Case Report Surgical Pathology Report ? Case: [id number] ? Authorizing Provider: ??Hermilo Tam MD ?Ordering Provider: ?? Hermilo Tam MD ? Ordering Location: ? [facility] ? Collected: ? 11/03/2013 ??9:57 AM ? Pathologist: ? Lucia Leach MD ? Received: ?11/03/2013 11:35 AM ?Signed Out: ?11/04/2013 ??3:30 PM (Final) ? Specimen: ?Uterus w Tubes, uterus,cervix, and left tube ? 11/04/2013 3:30 PM [facility] Final Diagnosis 1. Uterus, cervix, hysterectomy: -- No pathologic diagnosis Uterus, endometrium, hysterectomy: -- Inactive pattern Uterus, myometrium, hysterectomy: -- Atypical leiomyoma, see note Uterus, serosa, hysterectomy: -- Fibrous adhesions Fallopian tube, left, salpingectomy: -- No pathologic diagnosis OA/GM/piero 11/04/2013 3:30 PM [facility] Gross Description The specimen is received in a single formalin-filled container for gross and microscopic examination, labeled with the patient's name, Paola Lopez, and uterus, cervix, left tube and it consists of a uterine corpus with attached cervix and a separate fragment of fallopian tube. The uterine corpus with attached cervix weigh 79 grams and measures 8.7 cm superior to inferior x 4.9 cm intercornual x 3.4 cm anterior to posterior. The serosal surface is smooth, pink-conrad and glistening. The ectocervix measures 3.5 x 3 cm and is lined by a smooth, pink-conrad mucosa with focal punctuate hemorrhage. The cervical os is slit-like and measures 0.6 cm. The endocervical canal is 2.4 cm in length and is lined by a smooth, pink-conrad mucosa. The endometrial cavity is 3.5 cm in length x up to 1.5 cm and is lined by a smooth, conrad endometrium up to 1 mm in thickness. The myometrium is up to 1.7 cm in thickness. Cut section reveals two, white, whorled leiomyomas measuring 0.7 and 0.3 cm in greatest dimension. The included portion of fallopian tube measures 1.8 cm in length x up to 0.4 cm in external diameter. Fallopian tube has a pink-conrad congested serosa. It appears patent with a fimbriated end. Life Teacher sections are submitted as follows: A1. Anterior cervix A2. Posterior cervix A3. Anterior endometrium, myometrium, serosa A4. Anterior endometrium, myometrium, serosa (including leiomyoma) A5. Posterior endometrium, myometrium, serosa (including 0.3 cm leiomyoma) A6. Entire fallopian tube section OA/na 11/04/2013 3:30 PM [facility] Microscopic Description Microscopic examination of the cervix shows ectocervical stratified squamous epithelium with no evidence of dysplasia or malignancy. The endocervical glandular epithelium shows no evidence of atypia or malignancy. Sections of the endometrium show an inactive pattern with no evidence of endometrial hyperplasia or malignancy. Sections of the myometrium show two leiomyomas. One of the leiomyomas consists of fascicles of bland smooth muscle cells with no evidence of nuclear atypia, increased mitotic activity or tumor cell necrosis. The other leiomyoma consists of fascicles of smooth muscle cells. The nuclei are focally enlarged, hyperchromatic and with moderate nuclear atypia. No increased mitotic activity or tumor cell necrosis are identified. These findings fulfill the diagnostic criteria for atypical leiomyoma (bizarre leiomyoma). Sections of the serosa show focal fibrinous adhesions. The fallopian tubes are histologically unremarkable. OA/GM/piero 11/04/2013 3:30 PM [facility] Note Atypical leiomyoma is a variant of uterine leiomyoma which tends to behave in a benign manner. It has been reported in association with previous progestin use. In a serious of 24 patients with atypical leiomyoma, all patients reported had no increased risk of recurrence or . The findings of this case have been discussed with Dr. Hermilo Tam. ?? Reference: Jered KA, Severiano ROBLES. Bizarre leiomyomas of the uterus: a comprehensive pathologic study of 24 cases with long-term follow-up. Am J Surg Pathol. 1996;21(11):1261-7 0 OA/GM 11/04/2013 3:30 PM [facility] Synoptic Report 11/04/2013 3:30 PM [facility] Pathology/Cytolo gy UTERUS AND FALLOPIAN TUBES, CS / Unknown 11/03/2013 9:57 AM SHEET COMBINING OPERATOR 11/03/2013 11:35 AM SHEET COMBINING OPERATOR Hermilo Tam MD LAB - PATHOLOGY/CYTO LOGY ORDERABLES [facility] [address] [place] [address] * CULTURE URINE (11/03/2013 9:11 AM SHEET COMBINING OPERATOR) Culture No Growth (<1,000 CFU/mL) 11/05/2013 11:34 AM SHEET COMBINING OPERATOR [facility] Urine URINE SPECIMEN COLLECTION, CATHETERIZED / Unknown Collection / Unknown 11/03/2013 9:11 AM SHEET COMBINING OPERATOR 11/03/2013 11:34 AM SHEET COMBINING OPERATOR Hermilo Tam MD LAB - MICROBIOLOGY O RDERABLES [facility] [address] [place] [address], [facility] * PATHOLOGY/GENETICS HISTORICAL-ONBASE (11/03/2013) 11/03/2013 Narrative [facility] - 11/05/2013 8:12 AM SHEET COMBINING OPERATOR Historical Provider LAB - CHEMISTRY O RDERABLES [facility] [address] [place] [address], [facility] * BLOOD TYPE VERIFICATION (10/30/2013 11:21 AM SHEET COMBINING OPERATOR) ABO O 10/30/2013 11:54 AM SHEET COMBINING OPERATOR [facility] Rh Type Positive 10/30/2013 11:54 AM SHEET COMBINING OPERATOR [facility] Blood Bank BLOOD SPECIMEN / Unknown 10/30/2013 11:21 AM SHEET COMBINING OPERATOR 10/30/2013 11:21 AM SHEET COMBINING OPERATOR Hermilo Tam MD LAB - BLOOD BANK ORD ERABLES Performing Organization Address City/[facility]/ZIP Co de Phone Number [facility] * TYPE + SCREEN PANEL (10/30/2013 10:39 AM SHEET COMBINING OPERATOR) ABO O 10/30/2013 11:53 AM SHEET COMBINING OPERATOR [facility] Rh Type Positive 10/30/2013 11:53 AM SHEET COMBINING OPERATOR [facility] Comment:Historical blood typ e on record. Antibody Screen Negative 10/30/2013 11:53 AM SHEET COMBINING OPERATOR [facility] Blood Bank BLOOD SPECIMEN / Unknown Venipuncture / Unknown 10/30/2013 10:39 AM SHEET COMBINING OPERATOR 10/30/2013 10:51 AM SHEET COMBINING OPERATOR Hermilo Tam MD LAB - BLOOD BANK ORD ERABLES [facility] * (ABNORMAL) URINALYSIS W/MICROSCOPIC NO CULTURE (10/07/2013) Color UA YELLOW YELLOW [facility]) Appearance CLEAR CLEAR [facility]) Specific [place] Urine 1.016 1.001 - 1.035 [facility]) pH Urine 6.5 5.0 - 8.0 [facility]) Glucose UA NEGATIVE NEGATIVE [facility]) Bilirubin UA NEGATIVE NEGATIVE [facility]) Ketones NEGATIVE NEGATIVE [facility]) Blood UA 1+(A) NEGATIVE [facility]) Protein UA NEGATIVE NEGATIVE [facility] Nitrite UA NEGATIVE NEGATIVE [facility] Leukocyte Esterase NEGATIVE NEGATIVE [facility]) WBC Urine NONE SEEN < OR = 5 /HPF [facility]) RBC Urine 0-3 < OR = 3 /HPF [facility]) Squamous Epithelial Cells UA NONE SEEN < OR = 5 /HPF [facility]) Bacteria UA NONE SEEN NONE SEEN /HPF [facility]) Hyaline Casts UA NONE SEEN NONE SEEN /LPF [facility]) Comment: Test Performed at: [facility] [id number] [place] [address] ??[id number] AMISH MONTGOMERY DO,MPH Urine specimen (specimen) URINE SPECIMEN COLLECTION, CATHETERIZED / Unknown 10/07/2013 10/08/2013 5:18 AM SHEET COMBINING OPERATOR Hermilo Tam MD LAB - URINALYSIS ORD ERABLES [facility]) Care Teams Dishwasher Relationship Specialty Start Date End Date Jase Farias MD [address] [place], [place] [id number] PCP - General Family Medicine 08/01/23
--- OUTSIDE RECORDS SUMMARY | 2024-10-27 16:41 | XMS_ITS | Encounter Summary ---
Author Organization [facility] Facility Care Team Providers Care Human Service Specialist Name Role Phone Esperanza Kowalski MD Primary Care Provider [phone] Unknown, Notinfile Primary Care Provider Unavail able Esperanza Kowalski MD Primary Care Provider [phone] Jase Farias MD Primary Care Provider [phone] Maximilian Parish MD Primary Care Provider [phone] Jase Farias MD Primary Care Provider [phone] Encounter Details Date Type Department Care Team (Latest Contact Info) Description 09/27/2017 Orders Only [facility] CLINCON[facility] ProviderNickolas MD [address] [place] [address] Social History Tobacco Use Types Packs/Day Years Used Date Smoking Tobacco: Former Comments Unknown Sex and Gender Information Value Date Recorded Sex Assigned at Not on file Legal Sex Female 11:52 PM DRAFTER PATENT Gender Identity Not on file Sexual Orientation Not on file documented as of this encounter Plan of Treatment Not on file documented as of this encounter Procedures Procedure Name Priority Date/Time Associated Diagnosis Comments SCAN - LABS 09/28/2017 12:00 AM DRAFTER PATENT documented in this encounter Results * SCAN - LABS (09/28/2017 12:00 AM DRAFTER PATENT) Narrative 09/28/2017 12:00 AM DRAFTER PATENT Ordered by an unspecified provider. us Historical Provider Final Res ult documented in this encounter Visit Diagnoses Not on filedocumented in this encounter Additional Health Concerns Infection Onset Date Last Indicated Resolved Time COVID19 Comment:Results from 09/17 verified and to be scanned in. 09/27/2020 09/27/2020 10/20/2020 3:05 AM DRAFTER PATENT COVID: Recovered Comment:Added based on recent COVID infection. 10/20/2020 10/29/2020 02/17/2021 3:05 AM C DT documented as of this encounter Care Teams Human Service Specialist Relationship Specialty Start Date End Date Esperanza Kowalski MD PCP - General 07/19/17 [...]
--- OUTSIDE RECORDS SUMMARY | 2024-10-27 16:41 | XMS_ITS | Encounter Summary ---
Author Organization [facility] Facility Care Team Providers Care Garden Worker Name Role Phone Esperanza Kowalski MD Primary Care Provider [phone] Jase Farias MD Primary Care Provider [phone] Maximilian Parish MD Primary Care Provider [phone] Jase Farias MD Primary Care Provider [phone] Encounter Details Date Type Department Care Team (Latest Contact Info) Description 04/24/2018 Orders Only [facility] CLINCONV ProviderNickolas MD [address] [place] [address] Social History Tobacco Use Types Packs/Day Years Used Date Smoking Tobacco: Former Comments Unknown Sex and Gender Information Value Date Recorded Sex Assigned at Not on file Legal Sex Female 11:52 PM TECHNICAL INTERN Gender Identity Not on file Sexual Orientation Not on file documented as of this encounter Plan of Treatment Not on file documented as of this encounter Procedures Procedure Name Priority Date/Time Associated Diagnosis Comments PROCEDURE - RESULT 04/24/2018 12 :00 AM CDT documented in this encounter Results * PROCEDURE - RESULT (04/24/2018 12:00 AM CDT) Narrative 04/24/2018 12:00 AM CDT Ordered by an unspecified provider. us Historical Provider Final Res ult documented in this encounter Visit Diagnoses Not on filedocumented in this encounter Additional Health Concerns Infection Onset Date Last Indicated Resolved Time COVID19 Comment:Results from 09/17 verified and to be scanned in. 09/27/2020 09/27/2020 10/20/2020 3:05 AM TECHNICAL INTERN COVID: Recovered Comment:Added based on recent COVID infection. 10/20/2020 10/29/2020 02/17/2021 3:05 AM C DT documented as of this encounter Care Teams Garden Worker Relationship Specialty Start Date End Date Esperanza Kowalski MD PCP - General 02/18/18 10/27/19 Jase Farias MD PCP - General Family Medicine 10/28/19 10/09/22 Maximilian Parish MD PCP - General Family Medicine 10/10/22 03/27/23 Jase Farias MD PCP - General Family Medicine 01/17/24 documented as of this encounter
--- OUTSIDE RECORDS SUMMARY | 2024-10-27 16:41 | XMS_ITS | Encounter Summary ---
Author Organization [facility] Facility Care Team Providers Care Amusement Equipment Operator Name Role Phone Esperanza Kowalski MD Primary Care Provider [phone] Unknown, Notinfile Primary Care Provider Unavail able Esperanza Kowalski MD Primary Care Provider [phone] Jase Farias MD Primary Care Provider [phone] Maximilian Parish MD Primary Care Provider [phone] Jase Farias MD Primary Care Provider [phone] Encounter Details Date Type Department Care Team (Latest Contact Info) Description 07/19/2017 Orders Only [facility] CLINCONV ProviderNickolas MD [address] [place] [address] Social History Tobacco Use Types Packs/Day Years Used Date Smoking Tobacco: Former Comments Unknown Sex and Gender Information Value Date Recorded Sex Assigned at Not on file Legal Sex Female 11:52 PM NURSING ADMINISTRATOR Gender Identity Not on file Sexual Orientation Not on file documented as of this encounter Plan of Treatment Not on file documented as of this encounter Procedures Procedure Name Priority Date/Time Associated Diagnosis Comments SCAN - LABS 07/24/2017 12:00 AM CDT documented in this encounter Results * SCAN - LABS (07/24/2017 12:00 AM CDT) Narrative 07/24/2017 12:00 AM CDT Ordered by an unspecified provider. Historical Provider Final Res ult documented in this encounter Visit Diagnoses Not on filedocumented in this encounter Additional Health Concerns Infection Onset Date Last Indicated Resolved Time COVID19 Comment:Results from 09/17 verified and to be scanned in. 09/27/2020 09/27/2020 10/20/2020 3:05 AM NURSING ADMINISTRATOR COVID: Recovered Comment:Added based on recent COVID infection. 10/20/2020 10/29/2020 02/17/2021 3:05 AM C DT documented as of this encounter Care Teams Amusement Equipment Operator Relationship Specialty Start Date End Date Esperanza [...]
--- OUTSIDE RECORDS SUMMARY | 2024-10-27 16:41 | XMS_ITS | Clinical Summary ---
Author Organization [facility] [employer] Address [address] [facility] [address] [facility] [place] [address] Care Team Providers Care Electronic Test Technician Name Role Phone Jase Farias MD Primary Care Provider [phone] Source Comments [facility] [employer]non-owned Affiliates and Associated Physician Practices is amultiple site organization consisting of ambulatory clinics and hospital sitesin [place], [place], [place] and [place]. This disclosure is being madepursuant to the Care Everywhere program and may not contain all information available regarding this patient. Last updated 18.[facility] [employer] Allergies Active Allergy Reactions Criticality Noted Date [...] 20 MG tablet 07/12/2022 Active HYDROcodone-acetaminop hen (Archie) 5-325 MG tablet Take 1 (one) tablet [...] Diagnosed Date Resolved Date Constipation 06/15/2015 08/25/2021 Encounters Date Type Department Care Team Description 07/29/2024 9:30 AM CDT Office Visit [facility] - RETAIL PHARMACIST [address] [place] [address] Hermilo Tam Che, MD Cystocele, midline (Primary Dx) 07/29/2024 Travel from Last 3 Months Family History Medical History Relation Name Comments Cancer Other 1 Diabetes Other 2 Heart Disease Other 3 Hypertension Other 4 Hyperlipidemia Other 5 Relation Name Status Comments Other 1 Other 2 Other 3 Other 4 Other 5 Social History Tobacco Use Types Packs/Day Years [...] AM CDT Pulse 62 09/07/2022 8:26 AM DIRECTOR FURNITURE Temperature 36.5 ??C (97.7 ??F) 08/01/2023 9:17 AM CD T Respiratory Rate 16 02/13/2017 8:12 AM CDT Oxygen Saturation 99% 09/07/2022 8:26 AM DIRECTOR FURNITURE Inhaled Oxygen Concentration - - Weight 78.9 kg (174 lb) 07/29/2024 9:16 AM CDT Height 165.1 cm (5' 5 ) 07/29/2024 9:16 AM CDT Body Mass Index 28.96 07/29/2024 9:16 AM CDT Plan of Treatment Health Maintenance Due Date Last Done Comments COLOGUARD (AGES 45-75) - COLON CA SCREENING 1956 COLON MONITORING 1956 COLONOSCOPY - COLON CA SCREENING 1956 CT COLONOGRAPHY - COLON CA SCREENING 1956 Colorectal Cancer Screening 1956 FIT - COLON CA SCREENING 1956 FLEX SIG - COLON CA SCREENING 1956 HEPATITIS C SCREENING 03/19/1974 DTAP/TDAP/TD VACCINES (1 - Tdap) 1975 PNEUMOCOCCAL VACCINE 50+ (1 of 1 - PCV) 2006 ZOSTER VACCINE (1 of 2) 2006 SCREENING FOR DIABETES 09/07/2022 02/01/2017, 2013 COVID-19 VACCINE ( season) 2024 07/21/2022, 04/20/2022, 08/24/2021, Additional history exists INFLUENZA VACCINE (#1) 2024 , 08/23/2021, 06/19/2019 DEPRESSION SCREENING 10/01/2024 MEDICARE AWV ? CALENDAR YEAR 2024 MAMMOGRAM 01/31/2026 02/01/2024, 11/2023, 01/16/2023, Additional history exists Respiratory Syncytial Virus (RSV) Vaccine Pt: or over 60 yrs (1 - 1-dose 75+ series) 2031 BONE DENSITY TESTING Completed 01/17/2023 HEPATITIS B VACCINE Aged Out No longe r eligible based on patient's age to complete this topic HIB VACCINE Aged Out No longer eligi ble based on patient's age to complete this topic HPV VACCINE Aged Out No longer eligi ble based on patient's age to complete this topic MENINGOCOCCAL (Group B) VACCINE Aged Out No longer eligible based on patient's age to complete this topic MENINGOCOCCAL VACCINE Aged Out No janet alejandra eligible based on patient's age to complete this topic Medical Devices Implanted Type Area Silver Miner Device Identifier Shelf Expiration Date Model / Serial / Lot Grft Tiss Rep Xenform 6 X 10cm - [id number] Implanted:Qty: 1 on 11/03/2013 by Hermilo Tam Che, MD at [facility] [employer] 03/30/2016 [id number] / [id number] / [id number] Graft Tissue Xenform Ftl Bvn Drml Mtrx Implanted:Qty: 1 on 02/12/2017 by Hermilo Tam Che, MD at [facility] [employer] 01/28/2019 [id number] / / [id number] Procedures Procedure Name Priority Date/Time Associated Diagnosis Comments BASIC METABOLIC PANEL (CALCIUM TOTAL) Routine 02/01/2017 1:28 PM CDT from Last 3 Months or Most Recently Relevant to Health Maintenance Results * BASIC METABOLIC PANEL (CALCIUM TOTAL) (02/01/2017 1:28 PM CDT) Glucose 94 65 - 99 mg/dL [facility] ([facility]ER) BUN 10 8 - 27 mg/dL [facility] ([facility]) Creatinine 0.68 0.57 - 1.00 mg/dL [facility] ([facility]) eGFR non- 95 >59 mL/min/1.7 3 [facility] ([facility]) eGFR 110 >59 mL/min/1.7 3 [facility] ([facility]) BUN/Creatinine Ratio 15 12 - 28 [facility] ([facility]AK[facility]) Sodium 143 134 - 144 mmol/L [facility] ([facility]) Potassium 3.8 3.5 - 5.2 mmol/L [facility] ([facility]) Chloride 106 96 - 106 mmol/L [facility] ([facility]) CO2 20 18 - 29 mmol/L [facility] ([facility]) Calcium 9.2 8.7 - 10.3 mg/dL [facility] ([facility]) Blood specimen (specimen) BLOOD SPECIMEN / Unknown 02/01/2017 1:28 PM CDT 02/01/2017 Narrative [facility] ([facility]) - 02/02/2017 7:14 AM CDT Performed at: ??01 - [facility] ??[id number] Expediter Service Order: Antoni Zamudio PhD, Phone: ??[phone] Jessica Velasquez OUTSOLE SKIVER-LANGUAGE INTERPRETER LAB - CHEMI STRY ORDERABLES [facility]) from Last 3 Months or Most Recently Relevant to Health Maintenance Advance Directives * Full Code (Latest Code Status on File) Date Activated Date Inactivated Comments 02/12/2017 4:27 PM 02/13/2017 10:36 AM * FULL RESUSCITATION Date Activated Date Inactivated Comments 11/03/2013 2:46 PM 11/04/2013 11:37 AM Care Teams Electronic Test Technician Relationship Specialty Start Date End Date Jase Farias MD [address] [place] [phone] PCP - General Family Medicine 08/01/23
--- OUTSIDE RECORDS SUMMARY | 2024-10-27 16:42 | XMS_ITS | Encounter Summary ---
Author Organization [facility] Care Team Providers Care Pad Machine Offbearer Name Role Phone Esperanza Kowalski MD Primary Care Provider [phone] Unknown, Notinfile Primary Care Provider Unavail able Esperanza Kowalski MD Primary Care Provider [phone] Jase Farias MD Primary Care Provider [phone] Maximilian Parish MD Primary Care Provider [phone] Jase Farias MD Primary Care Provider [phone] Encounter Details Date Type Department Care Team (Latest Contact Info) Description 08/28/2017 Orders Only [facility] ProviderNickolas MD [address] [place] [id number] Social History Tobacco Use Types Packs/Day Years Used Date Smoking Tobacco: Former Comments Unknown Sex and Gender Information Value Date Recorded Sex Assigned at Not on file Legal Sex Female 11:52 PM FLUX PLANT OPERATOR Gender Identity Not on file Sexual Orientation Not on file documented as of this encounter Plan of Treatment Not on file documented as of this encounter Procedures Procedure Name Priority Date/Time Associated Diagnosis Comments COLONOSCOPY - SCAN 08/28/2017 12 :00 AM FLUX PLANT OPERATOR documented in this encounter Results * COLONOSCOPY - SCAN (08/28/2017 12:00 AM FLUX PLANT OPERATOR) Narrative 08/28/2017 12:00 AM FLUX PLANT OPERATOR Ordered by an unspecified provider. us Historical Provider Final Res ult documented in this encounter Visit Diagnoses Not on filedocumented in this encounter Additional Health Concerns Infection Onset Date Last Indicated Resolved Time COVID19 Comment:Results from 09/17 verified and to be scanned in. 09/27/2020 09/27/2020 10/20/2020 3:05 AM FLUX PLANT OPERATOR COVID: Recovered Comment:Added based on recent COVID infection. 10/20/2020 10/29/2020 02/17/2021 3:05 AM C DT documented as of this encounter Care Teams Pad Machine Offbearer Relationship Specialty Start Date End Date Esperanza [...]
--- OUTSIDE RECORDS SUMMARY | 2024-10-27 16:42 | XMS_ITS | Data Portability ---
[facility] Organization [facility] Address [address] [place] [address] Assessment No assessment recorded. Plan of Treatment Reminders Order Date Submit Date Provider Last Modified By Organization Details Last Modified Time Details Appointments ANY 15 2024 09:00A Ramona Farias MD Not available Not available Not available Lab HbA1c (hemoglob in A1c), blood 2023 024 [email or web address] In-Office Order, Internal Use Only DO Not Attach Compendium DO Not Attach Compendium, Do Not Delete/merge, [id number] 01/11/2024 10:24:59 HbA1c (hemoglob in A1c), blood 2023 024 [email or web address] In-Office Order, Internal Use Only DO Not Attach Compendium DO Not Attach Compendium, Do Not Delete/merge, [id number] 04/18/2024 11:23:27 HbA1c (hemoglob in A1c), blood 2024 025 [email or web address] In-Office Order, Internal Use Only DO Not Attach Compendium DO Not Attach Compendium, Do Not Delete/merge, [id number] 10/24/2024 13:01:30 Referral None recorded. Procedures None recorded. Surgeries None recorded. Imaging MAMMO, screening , bilateral 2023 024 TIFFANY Dc [facility] ([facility] Patient Access Centralized Scheduling, Centralized Scheduling, [address] [place], [address], 02/01/2024 14:47:32 Medication Orders rosuvasta tin 20 mg tablet 2023 024 [email or web address] [id number], [address], [place], [place], [id number], 11/30/2023 12:27:28 Zetia 10 mg tablet 2023 024 [email or web address] [facility] #[id number], [address], [place], [place], [id number], 11/30/2023 12:27:28 meloxicam 15 mg tablet 2023 024 [email or web address] [facility] #[id number], [address], [place], [place], [id number], 01/11/2024 10:24:59 Zetia 10 mg tablet 2023 024 [email or web address] [facility] #[id number], [address], [place], [place], [id number], 07/24/2024 14:00:13 Patient TargetsNo targets recorded. Patient Instructions Encounter Date Encounter Id Patient Instructions Last Modified By Organization Details Last Modified Time 04/18/2024 [id number] A healthy lifestyle: care instructions Not available 04/18/2024 11:23:27 10/24/2024 [id number] A healthy lifestyle: care instructions Not available 10/24/2024 13:01:30 A healthy lifestyle: care instructions Not available 10/24/2024 13:01:30 Reason for Referral None Reported. Results Created Date Observation Date Name Description Value Unit Range Abnormal Flag Note LastModifiedBy Organization Detail LastModifiedTime 01/11/20 24 01/11/2024 HbA1c (hemo globi n A1c), blood HbA1c 5.6 Not Available In-Office Order Internal Use Only DO Not Attach Compendium DO Not Attach Compendium, Do Not Delete/merge, [id number] 01/11/2024 10:20:24 04/18/20 24 04/18/2024 HbA1c (hemo globi n A1c), blood HbA1c 5.8 Not Available In-Office Order Internal Use Only DO Not Attach Compendium DO Not Attach Compendium, Do Not Delete/merge, [id number] 04/18/2024 10:21:26 07/31/2008/01/2024 LIPID PANEL cholesterol, total 104 mg/dL 100-19 9 Not Available [facility] ([facility]) [address] [facility], [place], [address], 08/01/2024 08:29:23 07/31/20 24 08/01/2024 LIPID PANEL triglyceride s 101 mg/dL 0-149 Not Available [facility] ([facility]) [address] [facility], [place], [address], 08/01/2024 08:29:23 07/31/2008/01/2024 LIPID PANEL HDL cholesterol 38 mg/dL >39 below low normal Not Available [facility] ([facility]) [address] [facility], [place], [address], 08/01/2024 08:29:23 07/31/20 24 08/01/2024 LIPID PANEL VLDL cholesterol kizzy 19 mg/dL 5-40 Not Available [facility] ([facility]) [address] [facility], [place], [address], 08/01/2024 08:29:23 07/31/20 24 08/01/2024 LIPID PANEL LDL chol calc ([facility]) 47 mg/dL 0-99 Not Available [facility] ([facility]) [address] [place], [address], 08/01/2024 08:29:23 07/31/2008/01/2024 COMP. METAB OLIC PANEL (14) glucose 111 mg/dL 70-99 above high normal Not Available [facility] ([facility]) [address] [place], [address], 08/01/2024 08:29:24 07/31/20 24 08/01/2024 COMP. METAB OLIC PANEL (14) BUN 15 mg/dL 8-27 Not Available [facility] ([facility]) [address] [facility], [place], [address], 08/01/2024 08:29:24 07/31/20 24 08/01/2024 COMP. METAB OLIC PANEL (14) creatinine 0.78 mg/dL 0.57-1 .00 Not Available [facility] ([facility]) [address], [place], [address], 08/01/2024 08:29:24 07/31/20 24 08/01/2024 COMP. METAB OLIC PANEL (14) eGFR 83 mL/mi n/1.7 3 >59 Not Available [facility] ([facility]) [address] [facility] [place], [address], 08/01/2024 08:29:24 07/31/20 24 08/01/2024 COMP. METAB OLIC PANEL (14) BUN/creatini ne ratio 19 12-28 Not Available [facility] ([facility]) [address] [facility], [place], [address], 08/01/2024 08:29:24 07/31/20 24 08/01/2024 COMP. METAB OLIC PANEL (14) sodium 144 mmol/ L 134-14 4 Not Available [facility] ([facility]) [address] [facility], [place], [address], 08/01/2024 08:29:24 07/31/20 24 08/01/2024 COMP. METAB OLIC PANEL (14) potassium 3.9 mmol/ L 3.5-5. 2 Not Available [facility] ([facility]) [address] [facility] [place], [address], 08/01/2024 08:29:24 07/31/20 24 08/01/2024 COMP. METAB OLIC PANEL (14) chloride 106 mmol/ L 96-106 Not Available [facility] ([facility]) [address] [facility] [place], [address], 08/01/2024 08:29:24 07/31/20 24 08/01/2024 COMP. METAB OLIC PANEL (14) carbon dioxide, total 23 mmol/ L - Not Available [facility] ([facility]) [address] [place], [address], 08/01/2024 08:29:24 07/31/20 24 08/01/2024 COMP. METAB OLIC PANEL (14) calcium 10.5 mg/dL 8.7-10 .3 above high normal Not Available [facility] ([facility]) [address] [place], [address], 08/01/2024 08:29:24 07/31/2008/01/2024 COMP. METAB OLIC PANEL (14) protein, total 8.3 g/dL 6.0-8. 5 Not Available [facility] ([facility]) [address] [place], [address], 08/01/2024 08:29:24 07/31/20 24 08/01/2024 COMP. METAB OLIC PANEL (14) albumin 4.3 g/dL 3.9-4. 9 Not Available [facility] ([facility]) [address] [place], [address], 08/01/2024 08:29:24 07/31/20 24 08/01/2024 COMP. METAB OLIC PANEL (14) globulin, total 4.0 g/dL 1.5-4. 5 Not Available [facility] ([facility]) [address] [place], [address], 08/01/2024 08:29:24 07/31/2008/01/2024 COMP. METAB OLIC PANEL (14) bilirubin, total 0.4 mg/dL 0.0-1. 2 Not Available [facility] ([facility]) [address] [facility] [place], [address], 08/01/2024 08:29:24 07/31/20 24 08/01/2024 COMP. METAB OLIC PANEL (14) alkaline phosphatase 73 IU/L 44-121 Not Available [facility] ([facility]) [address] [facility], [place], [address], 08/01/2024 08:29:24 07/31/20 24 08/01/2024 COMP. METAB OLIC PANEL (14) AST (SGOT) 22 IU/L 0-40 Not Available [facility] ([facility]) [address] [facility], [place], [address], 08/01/2024 08:29:24 07/31/20 24 08/01/2024 COMP. METAB OLIC PANEL (14) ALT (SGPT) 15 IU/L 0-32 Not Available [facility] ([facility]) [address] [facility], [place], [address], 08/01/2024 08:29:24 07/31/20 24 08/01/2024 CBC WITH DIFFE RENTI AL/PL ATELE T WBC 6.2 x10e3 /uL 3.4-10 .8 Not Available [facility] ([facility]) [address] [facility], [place], [address], 08/01/2024 08:29:25 07/31/20 24 08/01/2024 CBC WITH DIFFE RENTI AL/PL ATELE T RBC 4.70 x10e6 /uL 3.77-5 .28 Not Available [facility] ([facility]) [address] [facility], [place], [address], 08/01/2024 08:29:25 07/31/20 24 08/01/2024 CBC WITH DIFFE RENTI AL/PL ATELE T hemoglobin 12.3 g/dL 11.1-1 5.9 Not Available [facility] ([facility]) [address] [facility], [place], [address], 08/01/2024 08:29:25 07/31/20 24 08/01/2024 CBC WITH DIFFE RENTI AL/PL ATELE T hematocrit 39.7 % 34.0-4 6.6 Not Available [facility] ([facility]) [address] [place], [address], 08/01/2024 08:29:25 07/31/20 24 08/01/2024 CBC WITH DIFFE RENTI AL/PL ATELE T MCV 85 fL 79-97 Not Available [facility] ([facility]) [address] [facility], [place], [address], 08/01/2024 08:29:25 07/31/20 24 08/01/2024 CBC WITH DIFFE RENTI AL/PL ATELE T MCH 26.2 pg 26.6-3 3.0 below low normal Not Available [facility] ([facility]) [address] [place], [address], 08/01/2024 08:29:25 07/31/20 24 08/01/2024 CBC WITH DIFFE RENTI AL/PL ATELE T MCHC 31.0 g/dL 31.5-3 5.7 below low normal Not Available [facility] ([facility]) [address] [place], [address], 08/01/2024 08:29:25 07/31/20 24 08/01/2024 CBC WITH DIFFE RENTI AL/PL ATELE T RDW 15.7 % 11.7-1 5.4 above high normal Not Available [facility] ([facility]) [address] [place], [address], 08/01/2024 08:29:25 07/31/20 24 08/01/2024 CBC WITH DIFFE RENTI AL/PL ATELE T platelets 287 x10e3 /uL 150-45 0 Not Available [facility] ([facility]) [address] [place], [address], 08/01/2024 08:29:25 07/31/20 24 08/01/2024 CBC WITH DIFFE RENTI AL/PL ATELE T neutrophils 51 % notest ab. Not Available [facility] ([facility]) [address] [facility], [place], [address], 08/01/2024 08:29:25 07/31/20 24 08/01/2024 CBC WITH DIFFE RENTI AL/PL ATELE T lymphs 33 % notest ab. Not Available [facility] ([facility]) [address] [facility], [place], [address], 08/01/2024 08:29:25 07/31/20 24 08/01/2024 CBC WITH DIFFE RENTI AL/PL ATELE T monocytes 11 % notest ab. Not Available [facility] ([facility]) [address] [facility], [place], [address], 08/01/2024 08:29:25 07/31/20 24 08/01/2024 CBC WITH DIFFE RENTI AL/PL ATELE T eos 4 % notest ab. Not Available [facility] ([facility]) [address] [place], [address], 08/01/2024 08:29:25 07/31/20 24 08/01/2024 CBC WITH DIFFE RENTI AL/PL ATELE T basos 1 % notest ab. Not Available [facility] ([facility]) [address] [facility], [place], [address], 08/01/2024 08:29:25 07/31/20 24 08/01/2024 CBC WITH DIFFE RENTI AL/PL ATELE T neutrophils (absolute) 3.2 x10e3 /uL 1.4-7. 0 Not Available [facility] ([facility]) [address] [facility], [place], [address], 08/01/2024 08:29:25 07/31/20 24 08/01/2024 CBC WITH DIFFE RENTI AL/PL ATELE T lymphs (absolute) 2.1 x10e3 /uL 0.7-3. 1 Not Available [facility] ([facility]) [address] [facility], [place], [address], 08/01/2024 08:29:25 07/31/2008/01/2024 CBC WITH DIFFE RENTI AL/PL ATELE T monocytes(ab solute) 0.7 x10e3 /uL 0.1-0. 9 Not Available [facility] ([facility]) [address] [facility], [place], [address], 08/01/2024 08:29:25 07/31/2008/01/2024 CBC WITH DIFFE RENTI AL/PL ATELE T eos (absolute) 0.2 x10e3 /uL 0.0-0. 4 Not Available [facility] ([facility]) [address] [facility], [place], [address], 08/01/2024 08:29:25 07/31/20 24 08/01/2024 CBC WITH DIFFE RENTI AL/PL ATELE T baso (absolute) 0.0 x10e3 /uL 0.0-0. 2 Not Available [facility] ([facility]) [address] [facility], [place], [address], 08/01/2024 08:29:25 07/31/2008/01/2024 CBC WITH DIFFE RENTI AL/PL ATELE T immature granulocytes 0 % notest ab. Not Available [facility] ([facility]) [address] [facility], [place], [address], 08/01/2024 08:29:25 07/31/2008/01/2024 CBC WITH DIFFE RENTI AL/PL ATELE T immature grans (abs) 0.0 x10e3 /uL 0.0-0. 1 Not Available [facility] ([facility]) [address] [facility], [place], [address], 08/01/2024 08:29:25 10/24/1925 1010/24/2024 HbA1c (hemo globi n A1c), blood HbA1c 6.4 Not Available In-Office Order Internal Use Only DO Not Attach Compendium DO Not Attach Compendium, Do Not Delete/merge, [id number] 10/24/2024 11:52:43 11/02/19 24 11/02/2023 elect rocar diogr am No observ ation record ed. wandres In-Office Order Internal Use Only DO Not Attach Compendium DO Not Attach Compendium, Do Not Delete/merge, 11/02/2023 17:49:17 11/02/19 24 10/26/2023 elect rocar diogr am No observ ation record ed. BARCODE In-Office Order Internal Use Only DO Not Attach Compendium DO Not Attach Compendium, Do Not Delete/merge, 11/02/2023 18:09:29 01/03/20 24 nmens 1d [facility] [address] [facility] [address] [address] Myocar dial Perfus ion Imagin g Pat.Na me: PAOLA LOPEZ Pat.ID : [id number] St.Tim e: 01/03/20 Refer. MD: Jose Powell [id number] Exam Time: 7:31:0 0 AM Study Type:S EB NC HT MUSCLE IMAGE SPECT MULTI Height : 65 in Weight : 197 lb BSA: 1.97 m2 [age]: [birth year],68 Y Sex: F Sonogr phr: Tigre LovellTRufino Pat. Stat.: Outpat ient Reason for Study: Chest pain, Shortn ess of breath Histor y / Clinic al:Dys lipide jake, Hypert ension Proced ures: Nuclea r Stress Test with Exerci se Surger y: None ++++++ ++++++ ++++++ ++++++ ++++++ ++++++ SUMMAR Y: ++++++ ++++++ ++++++ ++++++ ++++++ ++++++ Stress conclu adi: 1. Clinic ally negati ve. 2. Electr ocardi ograph ically negati ve treadm ill test for ischem ia. 3. Adequa te exerci se capaci ty. 4. Alex Treadm ill Score is 5, which indica shahrzad low risk. 5. Blood pressu re respon se was normal . 6. Scinti graphi c images to follow . Perfus ion conclu adi: 1. Excell ent study qualit y. No motion correc tion was applie d to images . No attenu ation is noted. Prone imagin g was perfor med. 2. Normal myocar dial perfus ion SPECT imagin g. 3. Normal wall motion with an ejecti on fracti on of 65%. 4. Stress test with myocar dial perfus ion imagin g shows overal l low risk for a cardia c event. ++++++ ++++++ ++++++ ++++++ ++++++ ++++++ FINDIN GS: ++++++ ++++++ ++++++ ++++++ ++++++ ++++++ Protoc ol: The images were proces sed using the standa rd SPECT techni que. A gated study was perfor med on the stress images . Impres adi: SPECT images demons trate normal perfus ion of normal intens ity. Heart Size: The left ventri saul is normal . LV Wall Motion : The LVEF is calcul ated to be 65%. Gated SPECT images reveal normal wall motion . Transi ent Ischem ic Dilata tion: The TID is 0.71. There is no eviden ce of Transi ent Ischem ic Dilata tion. ++++++ ++++++ ++++++ ++++++ ++++++ ++++++ STRESS : ++++++ ++++++ ++++++ ++++++ ++++++ ++++++ Baseli ne Vital Signs: ECG: Normal sinus rhythm , Right bundle branch block HR: 78 bmp Rest BP: 147/83 Treadm ill Test Protoc ol: Saad Lopez on: 05:03 min:se c Max. Worklo ad (METS) : 7.1 Stress Test Result s: Max HR: 152 bmp Target HR: 153 bmp % Target : 99 % Max BP: 188/95 Max RPP: 22754 O2 sat: 100 % Sympto ms and Compli cation s: Termin ated: Attain ment of adequa te heart rate, Shortn ess of breath Sympto ms: Shortn ess of breath , Leg fatigu e Stress ECG Interp : Sinus tachyc ardia, RBBB 2023 12:14 PM Jose riggs M.D. [facility]? [facility] [address] [place], [address], 01/03/2024 15:38:10 01/03/20 24 01/03/2024 tread mill nucle ar stres s test (PROC ) No observ ation record ed. [facility] [address] [facility], [place], [address], 01/03/2024 15:38:53 01/15/20 24 01/15/2024 tread mill nucle ar stres s test (PROC ) No observ ation record ed. [facility] Scheduling [address] [facility], [place], [address], 01/15/2024 16:45:01 01/30/20 24 01/29/2024 US, echoc ardio gram, trans thora cic, compl ete, w/ color flow No observ ation record ed. [email or web address] [place], [address], 01/30/2024 17:53:04 02/01/20 24 02/01/2024 MAMMO , scree seymour, bilat eral No observ ation record ed. [email or web address], [place], [address], 02/04/2024 12:15:06 Result Notes None recorded. Problems Name Problem SNOMED Code Status Onset Date Resolution Date Notes Provider Name and Address Organization Details Recorded Time Benign essential hypertensio n [id number] Active 2022 Jase Farias MD Attn: Michele riggs,[address] [facility], [place], [address], [place] - [facility] 3 10:51:35 Gastroesoph ageal reflux disease without esophagitis 604570845 Active 2022 Jase Farias MD Attn: Dianain g,[address] [facility], [place], [address], [place] [facility] 3 10:51:36 Lumbar spondylosis 033061301 Active 2022 Jase Farias MD Attn: Michele g,[address] [facility], [place], [address], [place] [facility] 3 10:51:37 Osteoarthri tis of hip 841933817 Active 2022 Jase Farias MD Attn: Michele riggs,[address] [facility], [place], [address], [place] [facility] 3 10:51:39 Glaucoma 89768023 Active 2022 Jase Farias MD Attn: Michele g,[address] [facility], [place], [address], [place] [facility] 3 10:54:09 Osteoarthri tis of ankle 437239946 Active 2022 Jase Farias MD Attn: Michele g,[address] [facility], [place], [address], [place] [facility] 3 10:54:11 Impacted cerumen of bilateral ears 6795704776715 108 Active 2022 Jase Farias MD Attn: Michele g,[address] [facility], [place], [address], [place] [facility] 3 10:59:07 Hypercholes terolemia 61215211 Active 2022 Jase Farias MD Attn: Dianachuy riggs,[address] [facility], [place], [address], [place] [facility] 3 10:59:08 Morbid obesity 738545239 Active 2022 Jase Farias MD Attn: Dianachuy riggs,[address] [facility], [place], [address], [place] [facility] 3 10:59:11 Type 2 diabetes mellitus without complicatio n 204778865 Active 2022 Jase Farias MD Attn: Michele riggs,[address] [facility], [place], [address], [place] [facility] 3 10:59:12 Hypertrigly ceridemia 016603826 Active 2023 Jase Farias MD Attn: Michele riggs,[address] [facility], [place], [address], [place] - [facility] 4 11:00:47 Osteoarthri tis of knee 507358135 Active 2023 Jase Farias MD Attn: Michele riggs,[address] [facility], [place], [address], [place] [facility] 4 10:25:06 Overweight 226696920 Active 2023 Jase Farias MD Attn: Michele riggs,[address] [facility], [place], [address], [place] - [facility] 4 10:25:58 Problem Notes None recorded. Procedures Surgical History Date Name Laterality Status Provider Name and Address Organization Details Recorded Time Appendectomy completed Shadia Mon MA [place] [facility] 12/27/2022 10:37:43 Eye Surgery completed Shadia Mon MA [facility] 12/27/2022 10:37:48 hysterectomy completed Shadia Mon MA [facility] 12/27/2022 10:37:54 Imaging Results Imaging Date Name Status LastModified by Organization Details LastModified Time 11/02/2023 electrocardiogram completed wandres In-Offi ce Order Internal Use Only DO Not Attach Compendium DO Not Attach Compendium, Do Not Delete/merge, [id number] 11/02/2023 17:49:17 10/26/2023 electrocardiogram completed BARCODE In-Offi ce Order Internal Use Only DO Not Attach Compendium DO Not Attach Compendium, Do Not Delete/merge, [id number] 11/02/2023 18:09:29 01/03/2024 [email or web address] completed [facility]? [facility] [address] [place], [address], 01/03/2024 15:38:10 01/03/2024 treadmill nuclear stress test (PROC) completed [address], [address], 01/03/2024 15:38:53 01/15/2024 treadmill nuclear stress test (PROC) completed [facility] Scheduling [facility], [place], [address], 01/15/2024 16:45:01 01/29/2024 US, echocardiogram, transthoracic, complete, w/ color flow completed [address] Department [address] [place], [address], 01/30/2024 17:53:04 02/01/2024 MAMMO, screening, bilateral completed [address] [place], [address], 02/04/2024 12:15:06 Procedure Notes None recorded. Medical Equipment None Reported. Allergies Allergen ID Allergen Name Allergen Category Reaction Reaction Severity Criticality Documentation Date Start Date Code Code System Note Provider Name and Address Organization Details Recorded Time [id number] Bactrim medicatio n Not available Not available Not available 12/27/2022 65925 9 RxNorm tongu e swell ing Not Available Not Available Not Available Medications Name Sig Start Date Stop Date Status Note LastModified by Organization Details LastModified Time losartan 50 mg tablet active Not Available Not Available No t Available amoxicillin 500 mg capsule TK FOUR CS PO 1 HOUR B DAPP 10/26 completed Not Available Not Available Not Available metformin 500 mg tablet TAKE 1 TABLET BY MOUTH TWICE DAILY active Not Available Not Available No t Available clindamycin HCl 300 mg capsule TAKE 3 CAPSULES BY MOUTH 1 HOUR PRIOR TO YOUR DENTAL PROCEDURE 12/27 completed Not Available Not Available Not Available triamcinolo ne acetonide 0.5 % topical cream APPLY TOPICALLY TO THE AFFECTED AREA TWICE DAILY SPARINGLY 12/27 completed Not Available Not Available Not Available azithromyci n 250 mg tablet TAKE 2 TABLETS BY MOUTH FOR 1 DAY THEN TAKE 1 TABLET BY MOUTH DAILY FOR 4 DAYS 10/22 completed Not Available Not Available Not Available hydrocodone 5 mg-acetamin ophen 325 mg tablet TAKE 1 TABLET BY MOUTH TWICE DAILY NEEDED FOR 30 DAYS active Not Available Not Available No t Available meloxicam 15 mg tablet Take 1 tablet every day by oral route for 90 days. active Not Available Not Available No t Available alendronate 70 mg tablet TAKE 1 TABLET BY MOUTH EVERY WEEK active Not Available Not Available No t Available sulfamethox azole 800 mg-trimetho prim 160 mg tablet 10/26 completed Not Available Not Available Not Available tramadol 50 mg tablet 12/27 completed Not Available Not Available Not Available famotidine 20 mg tablet Take 1 tablet twice a day by oral route as needed. 04/09 completed Not Available Not Available Not Available prednisolon e acetate 1 % eye drops,suspe nsion SHAKE LIQUID AND INSTILL 1 DROP IN BOTH EYES FOUR TIMES DAILY DIRECTED 10/26 completed Not Available Not Available Not Available neomycin-po lymyxin-dex ameth 3.5 mg/mL-10,00 0 unit/mL-0.1 % eye drops active Not Available Not Available Not Available nitrofurant oin macrocrysta l 100 mg capsule TAKE 1 CAPSULE BY MOUTH TWICE A DAY FOR 7 DAYS 12/27 completed Not Available Not Available Not Available losartan 25 mg tablet 10/26 completed Not Available Not Available Not Available diclofenac sodium 75 mg tablet,joshua yed release Take 1 tablet twice a day by oral route after meals. 10/26 completed Not Available Not Available Not Available dorzolamide 22.3 mg-timolol 6.8 mg/mL eye drops INSTILL 1 DROP IN AFFECTED EYE(S) TWICE DAILY 04/09 completed Not Available Not Available Not Available hydrochloro thiazide 25 mg tablet active Not Available Not Available No t Available metoprolol succinate ER 25 mg tablet,exte nded release 24 hr TAKE 1 TABLET BY MOUTH EVERY DAY 2024 active Not Available Not Available Not Avai lable ergocalcife rol (vitamin D2) 1,250 mcg (50,000 unit) capsule Take 1 capsule every day by oral route. 04/09 completed Not Available Not Available Not Available methylpredn isolone 4 mg tablets in a dose pack Take 1 dose pk by oral route as directed. 10/22 completed Not Available Not Available Not Available albuterol sulfate HFA 90 mcg/actuati on aerosol inhaler INHALE 2 PUFFS BY MOUTH INTO THE LUNGS EVERY 6 HOURS NEEDED FOR WHEEZING 12/27 completed Not Available Not Available Not Available dorzolamide 2 % eye drops INSTILL 1 DROP IN BOTH EYES TWICE DAILY active Not Available Not Available No t Available amlodipine 10 mg-benazepr il 20 mg capsule 10/26 completed Not Available Not Available Not Available ezetimibe 10 mg tablet Take 1 tablet every day by oral route for 90 days. active Not Available Not Available No t Available rosuvastati n 5 mg tablet 10/26 completed Not Available Not Available Not Available rosuvastati n 10 mg tablet TAKE 1 TABLET BY MOUTH EVERY DAY active Not Available Not Available No t Available rosuvastati n 20 mg tablet TAKE 1 TABLET BY MOUTH EVERY DAY AT BEDTIME active Not Available Not Available No t Available EstroGel 1.25 gram/actuat ion (0.06%) transdermal gel pump 10/26 completed Not Available Not Available Not Available amlodipine 10 mg-benazepr il 40 mg capsule TAKE 1 CAPSULE BY MOUTH EVERY DAY 2024 active Not Available Not Available Not Avai lable Durezol 0.05 % eye drops 10/26 completed Not Available Not Available Not Available naloxone 4 mg/actuatio n nasal spray CALL 911. SPR CONTENTS OF ONE SPRAYER (0.1ML) INTO ONE NOSTRIL. REPEAT IN 2-3 MIN IF SYMPTOMS OF OPIOID EMERGENCY PERSIST, ALTERNATE NOSTRILS active Not Available Not Available No t Available Paxlovid 300 mg (150 mg x 2)-100 mg tablets in a dose pack TK 2 NIRMATREL VIR TS AND 1 RITONAVIR T TOGETHER PO BID FOR 5 DAYS BID FOR 5 DAYS 12/27 completed Not Available Not Available Not Available Vitals Date Recorded Body height Provider Name an d Address Organization Details Last Updated DateTime 11/30/2023 165.1 cm Galina Roach MA [facility] 024 10:37:27 Date Recorded Body mass index (BMI) Provider Name and Address Organization Details Last Updated DateTime 11/30/2023 30.5 kg/m2 Galina Roach MA [facility] 024 10:39:09 Date Recorded Body weight Provider Name an d Address Organization Details Last Updated DateTime 11/30/2023 23159.15 g Galina Roach MA [facility] 024 10:39:10 Date Recorded Heart rate Provider Name an d Address Organization Details Last Updated DateTime 11/30/2023 88 /min Galina Roach MA [facility] 024 10:40:02 Date Recorded Oxygen saturation Oxygen saturation in Arterial blood by Pulse oximetry Provider Name and Address Organization Details Last Updated DateTime 11/30/2023 99 % 99 % Galina Roach MA [facility] 11/30/2023 10:40:00 Date Recorded Body height Provider Name an d Address Organization Details Last Updated DateTime 01/11/2024 165.1 cm Viridiana Greene [place] 01/11/2024 1 0:01:55 Date Recorded Body mass index (BMI) Body weight Provider Name and Address Organization Details Last Updated DateTime 01/11/2024 30 kg/m2 50531.63 g Viridiana Greene [place] 01/10 10:01:59 Date Recorded Respiratory rate Provider Name a nd Address Organization Details Last Updated DateTime 01/11/2024 16 /min Viridiana Greene [place] [facility] 01/11/2024 10:02:00 Date Recorded Body temperature Provider Name a nd Address Organization Details Last Updated DateTime 01/11/2024 97.9 [degF] Viridiana Greene [place] [facility] [place] 01/11/2024 10:02:03 Date Recorded Oxygen saturation Oxygen saturation in Arterial blood by Pulse oximetry Provider Name and Address Organization Details Last Updated DateTime 01/11/2024 95 % 95 % Viridiana Greene [place] 2023 10:02:55 Date Recorded Heart rate Provider Name an d Address Organization Details Last Updated DateTime 01/11/2024 85 /min Viridianakate Guzmanson [place] 01/11/2024 1 0:02:59 Date Recorded Body height Provider Name an d Address Organization Details Last Updated DateTime 04/18/2024 165.1 cm Shadia Mon [place] 03/31 10:14:03 Date Recorded Body mass index (BMI) Body weight Provider Name and Address Organization Details Last Updated DateTime 04/18/2024 29.5 kg/m2 15999.85 g Shadia Mon MA [facility] 04/18/2024 10:14:09 Date Recorded Body temperature Provider Name a nd Address Organization Details Last Updated DateTime 04/18/2024 97.8 [degF] Shadia Mon [place] [facility] [place] 04/18/2024 10:14:29 Date Recorded Oxygen saturation Oxygen saturation in Arterial blood by Pulse oximetry Provider Name and Address Organization Details Last Updated DateTime 04/18/2024 95 % 95 % Shadia Mon [place] [facility] [place] 04/18/2024 10:14:46 Date Recorded Heart rate Provider Name an d Address Organization Details Last Updated DateTime 04/18/2024 88 /min Shadia Mon [place] 03/31 10:14:50 Date Recorded Body height Provider Name an d Address Organization Details Last Updated DateTime 07/24/2024 165.1 cm Shadia Mon [place] 07/02 11:53:32 Date Recorded Body mass index (BMI) Body weight Provider Name and Address Organization Details Last Updated DateTime 07/24/2024 29.2 kg/m2 23835.81 g Shadia Mon [place] [facility] [place] 07/24/2024 11:53:39 Date Recorded Oxygen saturation Oxygen saturation in Arterial blood by Pulse oximetry Provider Name and Address Organization Details Last Updated DateTime 07/24/2024 95 % 95 % Shadia Mon MA [facility] 07/24/2024 11:55:26 Date Recorded Heart rate Provider Name an d Address Organization Details Last Updated DateTime 07/24/2024 72 /min Shadia Mon MA [facility] 07/02 12:19:11 Date Recorded Body height Provider Name an d Address Organization Details Last Updated DateTime 10/24/2024 165.1 cm Shadia Mon MA [facility] 10/02 10:55:56 Date Recorded Body mass index (BMI) Body weight Provider Name and Address Organization Details Last Updated DateTime 10/24/2024 29.7 kg/m2 06324.49 g Shadia Mon MA [facility] 10/24/2024 10:56:05 Date Recorded Oxygen saturation Oxygen saturation in Arterial blood by Pulse oximetry Provider Name and Address Organization Details Last Updated DateTime 10/24/2024 99 % 99 % Shadia Mon [place] [facility] [place] 10/24/2024 10:57:56 Date Recorded Heart rate Provider Name an d Address Organization Details Last Updated DateTime 10/24/2024 78 /min Shadia Mon MA [facility] 10/02 10:58:00 Date Recorded Systolic blood pressure Diastolic blood pressure Provider Name and Address Organization Details Last Updated DateTime 11/30/2023 114 mm[Hg] 72 mm[Hg] Galina Roach MA [facility] 11/30/2023 10:41:35 Date Recorded Systolic blood pressure Diastolic blood pressure Provider Name and Address Organization Details Last Updated DateTime 01/11/2024 116 mm[Hg] 74 mm[Hg] Viridiana Greene [facility] 01/10 10:03:43 Date Recorded Systolic blood pressure Diastolic blood pressure Provider Name and Address Organization Details Last Updated DateTime 04/18/2024 120 mm[Hg] 78 mm[Hg] Shadia Mon MA [facility] 04/18/2024 10:15:29 Date Recorded Systolic blood pressure Diastolic blood pressure Provider Name and Address Organization Details Last Updated DateTime 07/24/2024 122 mm[Hg] 72 mm[Hg] Shadia Mon MA [facility] 07/24/2024 11:55:30 Date Recorded Systolic blood pressure Diastolic blood pressure Provider Name and Address Organization Details Last Updated DateTime 10/24/2024 124 mm[Hg] 78 mm[Hg] Shadia Mon MA [facility] 10/24/2024 10:57:55 Social History Question Answer Notes LastModified by Organizat ion Details LastModified Time Tobacco Smoking Status Former Smoker Shadia Mon MA null, [facility] 12/27/2022 10:38:58 What Is Your Level Of Alcohol Consumption? None Information not available 12/27/2022 What Is Your Level Of Caffeine Consumption? None Information not available 10/26/2023 What Was The Date Of Your Most Recent Tobacco Screening? 10/24/2024 Information not available 10/24/2024 At What Age Did You Start Smoking Tobacco? 17 Information not available 10/26/2023 How Much Tobacco Do You Smoke? No Information not available 10/26/2023 Do You Use Any Illicit Or Recreational Drugs? No Information not available 10/26/2023 Has Tobacco Cessation Counseling Been Provided? No Information not available 01/11/2024 How Many Years Have You Smoked Tobacco? 9 Information not available 10/26/2023 Do You Or Have You Ever Used Any Other Forms Of Tobacco Or Nicotine? No Information not available 10/26/2023 Sex: Unknown Functional Status None recorded. Mental Status None recorded. Family History Relationship Description Onset Age of this Age Resolved Age Notes LastModified by Organization Details LastModified Time Brother Hypertensive disorder [email or web address] Not available 2022 10:38:10 Brother Hypercholest erolemia [email or web address] Not available 2022 10:38:15 Brother Kidney disease [email or web address] Not available 2022 10:38:20 Brother Malignant tumor of prostate [email or web address] Not available 03/29/ 2023 10:38:33 Brother Diabetes mellitus [email or web address] Not available 2022 10:38:40 Mother Malignant tumor of ovary mmosleyma Not available 2022 10:38:27 Medical History Condition Response Coronary Artery Disease N Other N High Blood Pressure Y Atrial Fibrillation N Thyroid Problems N Kidney or Bladder Problems N GI Problems N Depression N COPD N Blood Clots N Skin Problems N Eating Disorder N Anemia N Heart Attack (DC) N Anxiety Disorder N Diabetes Y Muscle, Joint, or Bone Problems Y Seizures/Epilepsy N Acid Reflux (GERD) Y Cancer N Stroke N Asthma N Allergies N ADHD N Substance Abuse N High Cholesterol Y Hepatitis N Liver Disease N Schizophrenia N Headaches N Heart Failure N Osteoporosis N Gynecological HistoryNo gynecological history recorded. Obstetrics History GPAL:G 0 P 0 0 0 0 Immunizations Vaccine Type Date Status Note Provider Nam e and Address Organization Details Recorded Time Influenza, high-dose, quadrivalent, PF 07/27/2023 completed Jase Farias MD Attn: [address] [place], [address], [facility] 07/27/2023 17:33:24 Past Encounters Encounter ID Performer Location Encounter Start Date Encounter Closed Date Diagnosis/Indication Diagnosis SNOMED-CT Code Diagnosis ICD10 Code Diagnosis Note [id number] Augustina Arroyo [facility] [address] [place] [address] 05/17/2017 09:30:15 05/17/2017 11:20:12 Ankle pain 355758102 M25.572 Sprain of ankle 19122147 S93.412S Subluxatio n of peroneal tendon 448452556 S86.392S [id number] Augustina Arroyo [place] [address] [place] [address] 01/30/2020 11:56:11 02/03/2020 11:11:58 Exposure to SARS-CoV-2 482118311 Z20.822 [id number] Jase Farias MD [facility] [address] [address] 12/27/2022 10:08:40 12/28/2022 08:48:14 Benign essential hypertension 8335375 I10 conditon chroinc and at goal refill the amlodipine /benzapril , hctz, losartin, metoprolol er 90 days nad 3 refills order cbc, cmp Gastroesop hageal reflux disease without esophagitis 466744393 K21.9 condition choicn and at goal continue hte pepcid Lumbar spondylosis 10303 0009 M47.896 condition chronic and at goal refill hte norco. urine drug screen Osteoarthritis of hip 23 4542738 M16.9 condition chroinc adn at goal refill the diclofinac . order xray right hip at [facility] Glaucoma 37008567 H40.9 condition chroinc adn at goal continue the eye drops Osteoarthr itis of ankle 017303628 M19.079 condition chroicn adn at goal order xray right ankle at [facility] Cholesterol screening 27 7200987 Z13.220 order lipid panel Screening for malignant neoplasm of colon 218339206 Z12.[address] bermeo Screening for osteoporosis 046291382 Z13.820 order dexa scan at [facility] [id number] Jase Farias MD [facility] [address] [facility] [address] [place] [address] 03/29/2023 10:10:48 04/01/2023 07:13:11 Benign essential hypertension 2262465 I10 conditon chroinc and at goal refill the amlodipine /benzapril , hctz, losartin, metoprolol er 90 days nad 3 refills Gastroesop hageal reflux disease without esophagitis 692658766 K21.9 condition choicn and at goal continue hte pepcid Glaucoma 57371901 H40.9 condition chroinc adn at goal continue the eye drops Lumbar spondylosis 35466 0009 M47.896 condition chronic and at goal refill hte norco. rfer to ipc xray lumbar spine at [facility]. Osteoarthritis of hip 23 0408024 M16.9 condition chroinc adn at goal refill the diclofinac . order xray right hip at [facility] Type 2 johnna betes mellitus without complication 068215039 E11.9 hyperglyce rmia. orer hem a1c Morbid obesity 804373472 E66.01 conditon chocin and not at goal contnue low fat Hypercholesterolemia 136 40728 E78.00 condition chronic and nto at goal contineu the crestor Impacted c erumen of bilateral ears 9014122136 504340 H61.23 conditon acute clean bilateral ears. the bilateral extenral auditory canals are irrigated wtih normal saline nad a currette is used to remove the cerumen boluses intact. [id number] Jase Farias MD [facility] [address] [facility] [address] [place] [address] 06/28/2023 09:59:26 07/02/2023 13:57:25 Benign essential hypertension 8578653 I10 conditon chroinc and at goal refill the amlodipine /benzapril , hctz, losartin, metoprolol er 90 days nad 3 refills Gastroesop hageal reflux disease without esophagitis 529415601 K21.9 condition choicn and at goal continue hte pepcid Hypercholesterolemia 136 11911 E78.00 condition chronic and nto at goal contineu the crestor Lumbar spondylosis 71152 0009 M47.896 condition chronic and at goal refill hte norco. rfer to ipc xray lumbar spine at [facility]. Type 2 johnna betes mellitus without complication 358922516 E11.9 hyperglyce rmia. orer hem a1c start metformin 500 mg bid Glaucoma 70664488 H40.9 condition chroinc adn at goal continue the eye drops Osteoarthr itis of ankle 440761959 M19.079 condition chroicn adn at goal continue the nsaids Osteoarthritis of hip 23 2172635 M16.9 condition chroinc adn at goal refill the diclofinac . Impacted c erumen of bilateral ears 6336909365 864558 H61.23 conditon acute clean bilateral ears. the bilateral extenral auditory canals are irrigated wtih normal saline nad a currette is used to remove the cerumen boluses intact. [id number] Jase Farias MD [facility] [address] [address] 07/27/2023 10:20:12 07/30/2023 08:44:13 Benign essential hypertension 7986391 I10 conditon chroinc and at goal refill the amlodipine /benzapril , hctz, losartin, metoprolol er 90 days nad 3 refills Gastroesop hageal reflux disease without esophagitis 605764244 K21.9 condition choicn and at goal continue hte pepcid Hypercholesterolemia 136 19430 E78.00 condition chronic and nto at goal contineu the crestor Lumbar spondylosis 82868 0009 M47.896 condition chronic and at goal refill hte norco. follow ipc Type 2 johnna betes mellitus without complication 049767024 E11.9 hyperglyce rmia. orer hem a1c continue metformin 500 mg bid Type 2 johnna betes mellitus 37978536 E11.9 conditon chroinc and iproving continue present care plan Obesity 622099078 E66.9 condition chronic adn not at goal but improving contiue 1800 ada kizzy diet. Administra tion of influenza vaccine 90201863 Z23 [id number] Jase Farias MD [facility] [address] [place] [address] 10/26/2023 10:23:22 10/29/2023 09:42:41 Benign essential hypertension 3615180 I10 conditon chroinc and at goal refill the amlodipine /benzapril , hctz, losartin, metoprolol er 90 days nad 3 refills Gastroesop hageal reflux disease without esophagitis 832884216 K21.9 condition choicn and at goal continue hte pepcid Hypercholesterolemia 136 07775 E78.00 condition chronic and nto at goal contineu the crestor Type 2 johnna betes mellitus without complication 940656904 E11.9 hyperglyce rmia. orer hem a1c continue metformin 500 mg bid Chest pain 50190160 R07. 9 condition chronic with exacerbati on refer to dr cheng Willett c erumen of bilateral ears 7583540130 844872 H61.23 conditon acute clean bilateral ears. the bilateral extenral auditory canals are irrigated wtih normal saline nad a currette is used to remove the cerumen boluses intact. [id number] Walt Noguera MA [facility] [address] [place] [address] 10/26/2023 11:43:38 11/01/2023 08:50:43 Essential hypertension 09468024 I10 Hyperlipidemia 91560110 E78.5 Type 2 johnna betes mellitus without complication 731502463 E11.9 Chest discomfort 7880560 09 R07.89 Dyspnea on exertion 6084 5006 R06.09 [id number] Jase Farias MD [facility] [address] [facility] [address] [place] [address] 11/30/2023 10:35:10 12/03/2023 09:17:42 Benign essential hypertension 8503117 I10 conditon chroinc and at goal refill the amlodipine /benzapril , hctz, losartin, metoprolol xl Gastroesop hageal reflux disease without esophagitis 344813600 K21.9 condition choicn and at goal continue hte pepcid Hypercholesterolemia 136 29993 E78.00 condition chronic and not at goal will call dr anand increase the crestor to 20 mg and add zetia 10 mg Lumbar spondylosis 94850 0009 M47.896 condition chronic and at goal refill hte norco. follow ipc Type 2 johnna betes mellitus without complication 414117995 E11.9 hyperglyce rmia. orer hem a1c continue metformin 500 mg bid Hypertriglyceridemia 302 224837 E78.1 conditon chronic and not at goal will call dr anand start low carb diet. [id number] Viridiana Greene [facility] [address] [address] 01/11/2024 09:58:58 01/14/2024 09:59:35 Benign essential hypertension 6477708 I10 conditon chroinc and at goal refill the amlodipine /benzapril , hctz, losartin, metoprolol xl my rx Gastroesop hageal reflux disease without esophagitis 995806966 K21.9 condition choicn and at goal continue hte pepcid my rx Hypercholesterolemia 136 78569 E78.00 condition chronic and not at goal will call dr anand increase the crestor to 20 mg and add zetia 10 mg Type 2 johnna betes mellitus without complication 814307910 E11.9 hyperglyce rmia. orer hem a1c continue metformin 500 mg bid my rx order a1c Lumbar spondylosis 82995 0009 M47.896 condition chronic and at goal refill hte norco. follow ipc refill the soma my rx Impacted c erumen of bilateral ears 7657912085 222235 H61.23 conditon acute clean bilateral ears. the bilateral extenral auditory canals are irrigated wtih normal saline to remove the cerumen boluses intact. Osteoarthritis of hip 23 5001209 M16.9 condition chroinc adn at goal refill the diclofinac . my rx Screening mammography of bilateral breasts 7197471946 00385 Z12.31 order mammogrm at [facility] [id number] Jase Farias MD [facility] [address] [facility] [address] [place] [address] 04/18/2024 10:10:33 04/22/2024 10:31:42 Type 2 diabetes mellitus without complication 392351520 E11.9 hyperglyce rmia. orer hem a1c continue metformin 500 mg bid Gastroesop hageal reflux disease without esophagitis 645363860 K21.9 condition choicn and at goal continue hte pepcid my rx Benign ess ential hypertension 1919049 I10 conditon chroinc and at goal refill the amlodipine /benzapril , hctz, losartin, metoprolol xl my rx Hypercholesterolemia 136 01383 E78.00 condition chronic and not at goal will call dr anand continue the crestor to 20 mg and add zetia 10 mg Osteoarthritis of hip 23 0919818 M16.9 condition chroinc adn at goal refill the diclofinac . my rx Osteoarthr itis of knee 349398187 M17.9 conditon chronic and at goal refill the diclofinac Overweight 740032630 E66 .3 conditon chronic nad improving continue the low fat diet. [id number] Jase Farias MD [facility] [address] [facility] [address] [place] [address] 07/24/2024 10:59:20 07/25/2024 08:50:16 Benign essential hypertension 1187423 I10 conditon chroinc and at goal refill the amlodipine /benzapril , hctz, losartin, metoprolol xl my rx Gastroesop hageal reflux disease without esophagitis 418681052 K21.9 condition choicn and at goal continue hte pepcid my rx Hypercholesterolemia 136 86704 E78.00 condition chronic and not at goal will call dr anand continue the crestor to 20 mg and add zetia 10 mg Hypertriglyceridemia 302 121752 E78.1 conditon chronic and not at goal will call dr anand start low carb diet. Type 2 johnna betes mellitus without complication 111561203 E11.9 hyperglyce rmia. orer hem a1c continue metformin 500 mg bid Overweight 056865297 E66 .3 conditon chronic nad improving continue the low fat diet. Impacted c erumen of bilateral ears 6433548922 857940 H61.23 conditon acute clean bilateral ears. the bilateral extenral auditory canals are irrigated wtih normal saline to remove the cerumen boluses intact. [id number] Jase Farias MD [facility] [address] [facility] [address] [place] [address] 10/24/2024 10:50:13 10/24/2024 14:36:18 Type 2 diabetes mellitus without complication 487523796 E11.9 conditon chroinc nad at goal continue the metformin and order hem a1c Benign ess ential hypertension 0250062 I10 conditon chroinc and at goal refill the amlodipine /benzapril , hctz, losartin, metoprolol xl my rx Hypercholesterolemia 136 79423 E78.00 condition chronic and not at goal will call dr anand continue the crestor to 20 mg and add zetia 10 mg Hypertriglyceridemia 302 612860 E78.1 E78.00 conditon chronic and not at goal will call dr anand start low carb diet. Overweight 578646929 E66 .3 conditon chronic nad improving continue the low fat diet. Gastroesop hageal reflux disease without esophagitis 174709718 K21.9 condition choicn and at goal continue hte pepcid my rx Impacted c erumen in right ear 4539448964 788009 H61.21 conditona cute clean right ear. the right external auditory canal is irrigated with normal saline and hte currette is used to remove the cerumen bolus intact Health Concerns Section Related Observation LastModified by Organization Detai ls LastModified Time None Recorded Concern Status LastModified by Organization Details LastModified Time None Recorded Advance Directives Directive None Recorded Payers Encounter Date Sequence Insurance Name Policy Number Policy Albert Covered Member ID Albert Member ID Guarantor Name 11/30/2023 1 [facility] (MEDICARE REPLACEMENT/A DVANTAGE - HMO) [id number] Paola Lopez [id number] Paola John 01/11/2024 1 [facility] (MEDICARE REPLACEMENT/A DVANTAGE - HMO) [id number] Paola Lopez [id number] Paola John 04/18/2024 1 [facility] (MEDICARE REPLACEMENT/A DVANTAGE - HMO) [id number] Paola Bower John [id number] Paola John 07/24/2024 1 [facility] (MEDICARE REPLACEMENT/A DVANTAGE - HMO) [id number] Paola Lopez [id number] Paola Lopez 10/24/2024 1 [facility] (MEDICARE REPLACEMENT/A DVANTAGE - HMO) [id number] Paola Bower John [id number] Paola John Notes Date Note Type Note Provider Name and Address Organization Details Recorded Time 11/30/2023 text/html states that she had a pain in the left great toe for one day took aleve successfully the htn is under conrol was seen by cardiology and the chol and triglycerides are elevated. the lumbar back pain is under control and is seeing pain management. the bs are under control and has been watching her diet. sindy gerd is under control Jase Farias MD Attn: [address] [place], [address], [facility] 11/30/2023 17:55:34 01/11/2024 text/html states that she is doing good and the colo is utd and mammo is scheduled. the htn and the gerd is under conrol the chol is treated the bs she is not checking. the lumbar back pain is followed by ipc and the spasms continue Viridiana stephen, [place] - [facility] 01/11/2024 10:41:38 04/18/2024 text/html states that she is doing good and the htn is under control the gerd is under contorl hte lipids are stable the bs are under control has been watching her diet. the oa in the hip is improving from the gym the left knee is painful from hte oa. a1c is 5.8 colo is utd. Jase Farias MD Attn: [address] [place], [address], [facility] 04/18/2024 14:31:48 07/24/2024 text/html states taht she is feeling good and the htn is under ocntorl the gerd is under contorl and the ipids are under control has been watching her diet. the hip is doing better the bs are under control colo and mammo are utd Jase Farias MD Attn: Accounting[address] [facility], [place], [address], [facility] 07/24/2024 19:04:06 10/24/2024 text/html states that she is getting over the uri. the htn and the gerd is under contrll the lipids are treated. is not checking hte bs and is watching her diet. mammo and colo are utd. Jase Farias MD Attn: Accounting[address] [facility], [place], [address], [facility] 10/24/2024 14:36:16 OBGyn Episode No OBEpisode recorded.
--- OUTSIDE RECORDS SUMMARY | 2024-10-27 16:42 | XMS_ITS | Encounter Summary ---
Author Organization [facility] Facility Care Team Providers Care Toll Settlement Clerk Name Role Phone Esperanza Kowalski MD Primary Care Provider [phone] Jase Farias MD Primary Care Provider [phone] Maximilian Parish MD Primary Care Provider [phone] Jase Farias MD Primary Care Provider [phone] Encounter Details Date Type Department Care Team (Latest Contact Info) Description 05/10/2018 Orders Only [facility] ProviderNickolas MD [address] [place], [place] [id number] Social History Tobacco Use Types Packs/Day Years Used Date Smoking Tobacco: Former Comments Unknown Sex and Gender Information Value Date Recorded Sex Assigned at Not on file 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 us Historical Provider Final Res ult documented in this encounter Visit Diagnoses Not on filedocumented in this encounter Additional Health Concerns Infection Onset Date Last Indicated Resolved Time COVID19 Comment:Results from 09/17 verified and to be scanned in. 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 10/20/2020 10/29/2020 02/17/2021 3:05 AM C DT documented as of this encounter Care Teams Toll Settlement Clerk Relationship Specialty Start Date End Date Esperanza Kowalski MD PCP - General 02/18/18 10/27/19 Jase Farias MD PCP - General Family Medicine 10/28/19 10/09/22 Maximilian Parish MD PCP - General Family Medicine 10/10/22 03/27/23 Jase Farias MD PCP - General Family Medicine 01/17/24 documented as of this encounter
--- OUTSIDE RECORDS SUMMARY | 2024-10-27 16:42 | XMS_ITS | Clinical Summary ---
Author Organization [facility] Address [address] [place] [address]. [place], [place] [id number] [place], [place] [id number] Care Team Providers Care Telegraph Service Clerk Name Role Phone Alina Farias MD Primary Care Provider [phone] Jose Gracia MD Unavailable Allergies No known active allergies Medications amlodipine 5 MG tablet Take 5 mg by mouth daily. Active metoprolol tartrate 25 MG tablet Take by mouth 2 (two) times daily. Active rosuvastatin 10 MG tablet Take 10 mg by mouth daily. Active Family History Medical History Relation Comments Hypertension Mother Relation Status Comments Mother Social History Tobacco Use Types Packs/Day Years Used Date Smoking Tobacco: Never Smokeless Tobacco: Never Alcohol Use Standard Drinks/Week Comments No 0 (1 standard drink = 0.6 oz pur e alcohol) Comments Unknown Sex and Gender Information Value Date Recorded Sex Assigned at Not on file Legal Sex Female 6:04 PM CDT Gender Identity Not on file Sexual Orientation Not on file Last Filed Vital Signs Vital Sign Reading Time Taken Comments Blood Pressure 136/81 03/13/2018 6:08 PM CDT Pulse 100 03/13/2018 6:08 PM CDT Temperature 36.3 ??C (97.3 ??F) 03/13/2018 6:08 PM CD T Respiratory Rate 20 03/13/2018 6:08 PM CDT Oxygen Saturation 98% 03/13/2018 6:08 PM CDT Inhaled Oxygen Concentration - - Weight 89.4 kg (197 lb) 03/13/2018 6:08 PM CDT Height 165.1 cm (5' 5 ) 03/13/2018 6:08 PM CDT Body Mass Index 32.78 03/13/2018 6:08 PM CDT Plan of Treatment Health Maintenance Due Date Last Done Comments Colorectal Cancer Screening Colonoscopy (10 Years) 1956 Hepatitis C 1974 Mammogram Screening 1996 Zoster Vaccines (2 of 3) 05/24/2012 03/29/2012 Annual Medicare Wellness Visit 2021 DTaP, Tdap and Td Vaccines (2 - Td or Tdap) 01/24/2023 01/24/2013 COVID-19 Vaccine ( season) 2024 07/21/2022, 04/20/2022, 08/24/2021, Additional history exists Influenza Adult (#1) 2024 07/28/2022, 08/23/2021, 06/19/2019 RSV Immunization or 60+ Years (1 - 1-dose 75+ series) 2031 Pneumococcal Vaccine: 65+ Years Completed 10/30/2022, 08/15/2021 Dexa Scan (General) Completed 01/17/2023, 3 Meningococcal B Vaccine Aged Out No l onger eligible based on patient's age to complete this topic Meningococcal Vaccine Aged Out No janet alejandra eligible based on patient's age to complete this topic RSV Immunizations Under 20 Months Aged Out No longer eligible based on patient's age to complete this topic Procedures Procedure Name Priority Date/Time Associated Diagnosis Comments BONE DENSITY/DEXA Routine 01/17/2023 1:2 0 PM CDT Age-related osteoporosis without current pathological fracture from Last 3 Months or Most Recently Relevant to Health Maintenance Results * BONE DENSITY/DEXA (01/17/2023 1:20 PM CDT) Anatomical Region Laterality Modality Bone Mammography 01/17/2023 4:16 PM CDT Impressions 01/17/2023 4:17 PM CDT IMPRESSION: WHO Classification: Osteopenia RECOMMENDATIONS: All patients should ensure an adequate intake of dietary calcium and vitamin D. The NOF recommend adults under the age of 50 need 1000 mg of calcium and 400-800 IU of vitamin D daily. Effective therapy for the prevention and treatment of osteoporosis include bisphosphonates. FOLLOW-UP: People with diagnosed cases of osteoporosis or at high risk for fracture should have regular bone mineral density test. For patients eligible for Medicare, routine testing is allowed once every 2 years. Testing frequency can be increased to one year for patients who have rapidly progressing disease, those who are receiving or discontinuing medical therapy to restore bone mass, or have additional risk factors. Ordered By: ALINA FARIAS Interpreted By: Jigar Farias, 01/17/2023 4:16 PM Narrative 01/17/2023 4:17 PM CDT EXAMINATION: BONE DENSITY/DEXA INDICATIONS: Age-related osteoporosis without current pathological fracture COMPARISON: None TECHNIQUE: DEXA bone minimal density evaluation was performed in the AP projection over the lumbar spine and both hips utilizing standard imaging techniques. FINDINGS: The BMD measured at the AP spine L1-L4 is 1.019 g/cm? with a T-score of -0.3. The BMD measured at the left femoral neck is 0.665 g/cm? with a T-score of -1.7. The BMD measured at the left hip is 0.828 g/cm? with a T-score of -0.9. The BMD measured at the right femoral neck is 0.684 g/cm? with a T-score of - 1.5. The BMD measured at the right hip is 0.838 g/cm? with a T-score of -0.9. FRAX 10-year fracture risk: Major Osteoporotic Fracture: 6.8% Hip Fracture: 0.8% Procedure Note Jigar Farias MD - 01/17/2023 EXAMINATION: BONE DENSITY/DEXA INDICATIONS: Age-related osteoporosis without current pathologicalfracture COMPARISON: None TECHNIQUE: DEXA bone minimal density evaluation was performed in the APprojection over the lumbar spine and both hips utilizing standard imagingtechniques. FINDINGS: The BMD measured at the AP spine L1-L4 is 1.019 g/cm? with a T-score of-0.3. The BMD measured at the left femoral neck is 0.665 g/cm? with a T-score of-1.7. The BMD measured at the left hip is 0.828 g/cm? with a T-score of -0.9. The BMD measured at the right femoral neck is 0.684 g/cm? with a T-scoreof -1.5. The BMD measured at the right hip is 0.838 g/cm? with a T-score of -0.9. FRAX 10-year fracture risk: Major Osteoporotic Fracture: 6.8% Hip Fracture: 0.8% IMPRESSION: WHO Classification: Osteopenia RECOMMENDATIONS: All patients should ensure an adequate intake of dietary calcium andvitamin D. The NOF recommend adults under the age of 50 need 1000 mg ofcalcium and 400-800 IU of vitamin D daily. Effective therapy for theprevention and treatment of osteoporosis include bisphosphonates. FOLLOW-UP: People with diagnosed cases of osteoporosis or at high risk for fractureshould have regular bone mineral density test. For patients eligible forMedicare, routine testing is allowed once every 2 years. Testing frequencycan be increased to one year for patients who have rapidly progressingdisease, those who are receiving or discontinuing medical therapy torestore bone mass, or have additional risk factors. Ordered By: ALINA FARIAS Interpreted By: Jigar Farias, 01/17/2023 4:16 PM Alina Farias MD DEXA Final Result from Last 3 Months or Most Recently Relevant to Health Maintenance Insurance [facility] [place] [address] [employer] Care Teams Telegraph Service Clerk Relationship Specialty Start Date End Date Alina Farias MD PCP - General FAMILY PRACTICE 12/27/22 Jose Gracia MD [address] [place] [id number] CARDIOVASCULAR DISEASE 11/16/23
--- OUTSIDE RECORDS SUMMARY | 2024-10-27 16:42 | XMS_ITS | Referral Summary ---
Author Organization [address] Address [facility] [place] [address] Care Team Providers Care Acetone Recovery Worker Name Role Phone Jase Farias MD Primary Care Provider [phone] Allergies Active Allergy Reactions Criticality Noted Date Comments Other Delusions Medium 05/10/2018 Confusion Sulfamethoxazole-Trimethop rim Swollen tongue,Swelling High 07/19/2017 Tramadol Hcl Fatigue Low 11/20/2019 weak Medications acidophilus-pecti n, citrus 100 million cell-10 mg capsule Take by mouth daily Active prednisoLONE acetate (PRED FORTE) 1 % ophthalmic suspension SHAKE LIQUID AND INSTILL 1 DROP IN BOTH EYES FOUR TIMES DAILY DIRECTED [address] (VOLTAREN) 75 mg EC tabletIndications :Sacroiliitis (HCC) Take 1 tablet (75 mg total) by mouth 2 (two) times a day 180 tablet 1 3 Active famotidine (PEPCID) 20 mg tabletIndications :Gastroesophageal reflux disease without esophagitis Take 1 tablet (20 mg total) by mouth 2 (two) times a day 180 tablet 3 3 Active metoprolol XL (TOPROL-XL) 25 mg extended release tabletIndications :Essential hypertension Take 1 tablet (25 mg total) by mouth daily 90 tablet 1 3 Active Active Problems Problem Noted Date Diagnosed Date Medicare annual wellness visit, subsequent 10/30 Assessment & Plan (10/30/2022 3:31 PM ASPHALT MIXING MACHINE OPERATOR): Patient here for annual Medicare wellness visit and for review of complete medical problem list. All the elements of the plan were completed as outlined by [facility]. A copy of the prevention plan was given to the patient. I reviewed Medicare Wellness Questionnaire (other physicians involved in care, depression screen, advanced directives), cognitive/memory, and functional assessment. Forms scanned in progress notes. I reviewed and updated the complete problem list, medication list, family history, and immunization records with the patient. I provided preventive counseling and early detection interventions to the patient through health maintenance update and summary of today's office visit. Personalized Prevention Plan Services (PPPS): Immunization: PCV20: Ordered today 10/30/22 Influenza: UTD. HepatitisB: Not Applicable. Tetanus: Highly Recommended Shingles: Highly Recommended Cancer Screening: Mammogram: Ordered For Today. PAP Smear: Not Applicable. Prostate Cancer Screening: Not Applicable. Colorectal Cancer Screening: Performed on 08/28/[address] Palomo . and UTD. Lung Cancer Screening: Not Applicable. Others: Diet: Lifestyle education regarding diet discussed. Exercise: Encouraged regular daily exercise. Medication Use: Aspirin use discussion. DEXA Scan: Ordered For Today. Glaucoma Screening: Recommended Annually. Audio Screen ordered? No Diabetes: Not Applicable. Annual Labs: Ordered For Today. Abdominal Aortic Aneurysm Screening: Not Applicable. HIV Screening: Not Applicable. Smoking cessation Counselling: Not Applicable. 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 she thinks was inactive for several years- could also be c/w sarcoidosis H/o CME treated with IVT in POINT study Ddx includes sarcoidosis, idiopathic, RA/SLE-associated Labs 2016: neg RPR, B27, QGOLD, CMP, ANGELO CT 06/2016: There are no CT features in keeping with the patient's reported sarcoidosis. At most, there are enlarged lymph nodes in the upper abdomen which is a nonspecific finding. Assessment & Plan (09/13/2020 5:23 PM ASPHALT MIXING MACHINE OPERATOR): S.p Ozurdex OD 10/19/19 PLAN Ozurdex Os today 08/02/29 Repeat FA in 4 weeks Assessment & Plan (07/18/2020 9:53 PM CDT): Current ocular medications Durezol and Cosopt BID OU Plan Discussed r/b/a of local vs systemic steroids Discussed she may need systemic IMT if inflammation recurs after Ozurdex. Planning to see rheum for arthritis evaluation as well. Stop Durezol OD Resume Cosopt BID OD after 48h Return in 2 weeks for Ozurdx OS, same instructions Repeat FA in 6 weeks for new baseline after Ozurdex Trigger ring finger of left hand 12/08/2019 Trigger ring finger of right hand 12/08/2019 Acquired trigger finger of both index fingers Overview (12/08/2019): condition acute. refer to dr. 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 Good iop today, pt did take drops (gtts) RTC Serrato visual field (HVF) both eyes (OU) optic nerve (ON) OCT both eyes (OU) 3 months Elevated cholesterol/high density lipoprotein ra mervat 11/21/2018 Osteoarthritis 11/21/2018 Vitreomacular traction syndrome, right 8 Assessment & Plan (04/28/2019 11:33 AM CDT): Stable per Dr Ji Mac oct Ou next visit Assessment & Plan (08/19/2018 10:09 AM ASPHALT MIXING MACHINE OPERATOR): Stable, continue observation. 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 intraocular pressure (IOP) slightly elevated in setting of missing Cosopt for last several days. 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 Assessment & Plan (06/24/2020 4:16 PM CDT): Stable testing Poor compliance with drops (gtts) Good iOP today althought no cosopt this am Stressed compliance Cont cosopt BID OU Hypertension 04/05/2016 Resolved Problems Problem Noted Date Diagnosed Date Resolved Date Intermediate uveitis 05/24/2016 020 Assessment & Plan (06/24/2020 2:09 PM CDT): Poor compliance with drops (gtts) Stable mac oct Ou + vitreous (vit) cell Ou Durezol BID Ou [place] Chronic anterior uveitis, bilateral 04/19/2016 07/18/2020 Immunizations Name Administration Dates Next Due Influenza, Trivalent, IM (MDV) 06/19/2019 Influenza, Unspecified 07/28/2022,08/23/2021 Pfizer SARS-CoV-2 Monovalent Vaccination (12+ Yrs) PURPLE 04/20/2022,12/20/2020,11/24/2020,10/07,09/17/2020 Pfizer SARS-CoV-2 Monovalent Vaccination (5-11 Yrs) 08/23/2021 Pneumococcal Conjugate Pcv20 10/30/2022 Pneumococcal Polysaccharide PPV23 08/15/2021 Tdap 01/24/2013 ZOSTER LIVE 03/29/2012 Social History Tobacco Use Types Packs/Day Years Used Date Smoking Tobacco: Former Cigarettes 0.4 15 0 11/20/1972 - 11/20/1987 Smokeless Tobacco: Never Alcohol Use Standard Drinks/Week Comments Yes 0 (1 standard drink = 0.6 oz pur e alcohol) social AUDIT-C Answer Date Recorded Q1: How often do you have a drink containing alcohol? Never 07/12/2022 Q2: How many drinks containi ng alcohol do you have on a typical day when you are drinking? Patient does not drink Q3: How often do you have si x or more drinks on one occasion? Never 07/12/2022 PHQ-2 Answer Date Recorded PHQ-2 Total Score (If total score is 3 or more points, staff should administer the PHQ-9) 0 10/30/2022 Comments No Sex and Gender Information Value Date Recorded Sex Assigned at Not on file Legal Sex Female 11:52 PM ASPHALT MIXING MACHINE OPERATOR Gender Identity Not on file Sexual Orientation Not on file Last Filed Vital Signs Vital Sign Reading Time Taken Comments Blood Pressure 122/80 10/30/2022 2:42 PM ASPHALT MIXING MACHINE OPERATOR Pulse 84 10/30/2022 2:42 PM ASPHALT MIXING MACHINE OPERATOR Temperature 36.3 ??C (97.3 ??F) 07/12/2022 3:41 PM CD T Respiratory Rate 16 10/30/2022 2:42 PM ASPHALT MIXING MACHINE OPERATOR Oxygen Saturation 98% 07/12/2022 3:41 PM CDT Inhaled Oxygen Concentration - - Weight 89.1 kg (196 lb 8 oz) 10/30/2022 2:42 PM ASPHALT MIXING MACHINE OPERATOR Height 165.1 cm (5' 5 ) 10/30/2022 2:42 PM ASPHALT MIXING MACHINE OPERATOR Body Mass Index 32.7 10/30/2022 2:42 PM ASPHALT MIXING MACHINE OPERATOR Plan of Treatment Not on file Procedures Procedure Name Priority Date/Time Associated Diagnosis Comments SCREENING MAMMOGRAM BILATERAL W NUNO Schedule Routine, Read Routine (OP Routine) 02/01/2024 1:42 PM CDT Encounter for screening mammogram for malignant neoplasm of breast HM COLONOSCOPY Routine 08/28/2017 from Last 3 Months or Most Recently Relevant to Health Maintenance Results * Screening Mammogram Bilateral W Nuno (02/01/2024 1:42 PM CDT) Anatomical Region Laterality Modality Breast Bilateral Mammography Impressions 02/01/2024 1:45 PM CDT BI-RADS?? ATLAS category (overall): 1 - Negative There is no mammographic evidence of malignancy. A 1 year screening mammogram is recommended. The patient has been or will be contacted. We recommend annual screening mammography for women at average risk of breast cancer beginning at age 40, based on guidelines of the [employer] (ACR Practice Parameter for the Performance of Screening and Diagnostic Mammography) and [employer]. For women with and elevated risk of breast cancer, please refer to the ACR Practice Parameter for specific screening recommendations. The patient will be entered into a reminder system with a target due date of 1 year for her next screening exam. Narrative 02/01/2024 1:45 PM CDT Screening Mammogram Bilateral W Nuno: 02/01/24 The study was acquired using full field digital technology and interpreted from soft copy. 2D digital mammographic views, as well as 3D digital tomosynthesis were performed in the CC and MLO projections. CLINICAL: ??Encounter for screening mammogram for malignant neoplasm of breast. ??No relevant medical history has been documented for this patient. History of breast cancer in Neg Hx. COMPARISONS: 01/16/2023 SCREENING MAMMOGRAM BILATERAL W NUNO 11/30/2021 SCREENING MAMMOGRAM BILATERAL W NUNO 09/14/2016 Screening Mammogram Bilateral W Nuno BREAST TISSUE: The breasts are almost entirely fatty. FINDINGS: No suspicious masses, suspicious calcifications, or other suspicious findings are seen within either breast. There has been no suspicious change. Jase Farias MD IMG MAMMO PROCEDURES Final Resu lt * COLONOSCOPY (08/28/2017) Colonoscopy Normal Historical Provider HEALTH MAINTENANCE Final Result from Last 3 Months or Most Recently Relevant to Health Maintenance Insurance R HMO REF Member Subscriber Plan / Payer (Ef fective 2021-Present) Name:Paola Lopez Relation to Subscriber:Self Name:Paoal Lopez Payer ID:[id number] (NAIC) Type:[facility] Address: [place] [id number] HMO REF Member Subscriber Plan / Payer (Ef fective 2021-Present) Name:Paola Lopez Relation to Subscriber:Self Name:Paola Lopez Payer ID:[id number] (NAIC) Type:[facility] Address: [place] [id number] MEDICARE SOLUTIONS Advance Directives For more information, please contact: [phone] * Full Code (Latest Code Status on File) Date Activated Date Inactivated Comments 09/27/2020 3:01 AM 10/06/2020 9:59 PM Care Teams Acetone Recovery Worker Relationship Specialty Start Date End Date Jase Farias MD PCP - General Family Medicine 01/17/24
--- OUTSIDE RECORDS SUMMARY | 2024-10-27 16:42 | XMS_ITS | Clinical Summary ---
Author Organization [address] Address [facility] [place] [address] Care Team Providers Care Road Traffic Controller Name Role Phone Jase Farias MD Primary Care Provider [phone] Allergies Active Allergy Reactions Criticality Noted Date [...] 10/30 Assessment & Plan (10/30/2022 3:31 PM GYM SUPERVISOR): Patient here for annual Medicare wellness visit and for review of complete medical problem list. All the elements of the plan were completed as outlined by [facility]. A copy of the prevention plan was [...] bid Acute respiratory failure with hypoxia (CMS/FORMERLY [facility]) 09/27/2020 Pneumonia due to COVID-19 virus 09/27/2020 [...] finding. Assessment & Plan (09/13/2020 5:23 PM GYM SUPERVISOR): S.p Ozurdex OD 10/19/19 PLAN Ozurdex Os [...] visit Assessment & Plan (08/19/2018 10:09 AM GYM SUPERVISOR): Stable, continue observation. Uveitis 08/19/2018 Assessment & Plan (04/28/2019 11:31 AM CDT): Stable Cont Durezol BID right eye (OD) and every day (QD) left eye (OS) Stressed compliance with drops (gtts) and follow up Follow up with Dr Cleveland Mac oct Ou Assessment & Plan (08/19/2018 10:11 AM GYM SUPERVISOR): Chronic anterior uveitis and intermediate uveitis both [...] PPV23 08/15/2021 Tdap 01/24/2013 ZOSTER LIVE 03/29/2012 Surgical History Surgery Date Site/Laterality Comments CATARACT EXTRACTION Bilateral APPENDECTOMY HYSTERECTOMY 10/01/2010 - 09/30/2011 OOPHORECTOMY 10/01/2010 - 09/30/2011 Bilateral Medical History Medical History Date Comments Uveitis Hypertension Arthritis Hyperlipidemia Uveitic cataract, bilateral Family History Medical History Relation Name Comments No Known Problems Brother 1 No Known Problems Brother 2 No Known Problems Brother 3 No Known Problems Brother 4 No Known Problems Brother 5 No Known Problems Daughter 1 No Known Problems Daughter 2 No Known Problems Father Asthma Maternal Grandfather Diabetes Maternal Grandmother Cancer Mother Cervical cancer Mother Family histo ry of malignant neoplasm of cervix - (Added by TW Conv) No Known Problems Paternal Grandfather No Known Problems Paternal Grandmother No Known Problems Sister No Known Problems Son Breast cancer Neg Hx Relation Name Status Comments Brother 1 Alive Brother 2 Brother 3 Alive Brother 4 Alive Brother 5 Alive Daughter 1 Alive Daughter 2 Alive Father Maternal Grandfather Maternal Grandmother Mother Paternal Grandfather Paternal Grandmother Sister Alive Son Alive Social History Tobacco Use Types Packs/Day Years [...] on file Legal Sex Female 11:52 PM GYM SUPERVISOR Gender Identity Not on file Sexual Orientation Not on file Obstetrics History Para Term AB IAB SAB Ectopic Multiple Livin g Live Births 4 3 3 Date Outcome GA Total Labor Labor/2nd/3rd Weight Sex Type Anes PTL Mary A1 A5 Name Clin Term Term Term Last Filed Vital Signs Vital Sign Reading Time Taken Comments Blood Pressure 122/80 10/30/2022 2:42 PM GYM SUPERVISOR Pulse 84 10/30/2022 2:42 PM GYM SUPERVISOR Temperature 36.3 ??C (97.3 ??F) 07/12/2022 3:41 PM CD T Respiratory Rate 16 10/30/2022 2:42 PM GYM SUPERVISOR Oxygen Saturation 98% 07/12/2022 3:41 PM CDT Inhaled Oxygen Concentration - - Weight 89.1 kg (196 lb 8 oz) 10/30/2022 2:42 PM GYM SUPERVISOR Height 165.1 cm (5' 5 ) 10/30/2022 2:42 PM GYM SUPERVISOR Body Mass Index 32.7 10/30/2022 2:42 PM GYM SUPERVISOR Plan of Treatment Health Maintenance Due Date Last Done Comments Hepatitis C Screening 1955 Hepatitis B Screening 1974 Zoster Vaccine (2 of 3) 05/24/2012 03/29/2012 DTaP/Tdap/Td Vaccine (2 - Td or Tdap) 01/24/2023 01/24/2013 Depression Screening 10/30/2023 10/30/2022, 04/20/2022, 04/21/2021, Additional history exists Fall Risk Assessment 10/30/2023 10/30/2022, 04/20/2022, 04/21/2021, Additional history exists Well Visit 65+ 10/30/2023 10/30/2022 Covid-19 Vaccine (2023-2 5 season) 2024 07/21/2022, 04/20/2022, 04/20/2022, Additional history exists Influenza Vaccine (#1) 2024 2, 08/23/2021, 06/19/2019 Osteoporosis Screening-Bone Density Scan 01/17/2025 01/17/2023, 12/29/2022 Breast Cancer Screening-Mammogram 01/31/2025 02/01/2024, 01/16/2023, 11/30/2021, Additional history exists Colon Cancer Screening-Colonoscopy 08/28/2027 08/28/2017 Colon Cancer Screening-CT Colonography Discontinued 08/28/2017 Colon Cancer Screening-DNA Stool Discontinued 08/28/20 17 Colon Cancer Screening-FIT Discontinued 08/28/2017 Colon Cancer Screening-Sigmoidoscopy Discontinued 08/28/2017 Pneumococcal vaccine 65+ Completed 10/30/2022, 08/01 Procedures Procedure Name Priority Date/Time Associated Diagnosis [...] age 40, based on guidelines of the [employer] [place] [employer] (ACR Practice Parameter for the Performance of Screening and Diagnostic Mammography) and [place] [employer]. For women [...] PROCEDURES Final Resu lt * COLONOSCOPY (08/28/2017) [facility] Colonoscopy Normal Historical Provider HEALTH MAINTENANCE Final Result from Last 3 Months or Most Recently Relevant to Health Maintenance Insurance [facility] MEDIC[facility] SOLUTIONS Advance Directives For more information, please contact: [phone] * Full Code (Latest Code Status on File) Date Activated Date Inactivated Comments 09/27/2020 3:01 AM 10/06/2020 9:[address] Controller Relationship Specialty Start Date End Date Jsae Farias MD PCP - General Family Medicine 01/17/24
[2024-10-27 16:49] VITALS: BP 145/81; PULSE 88; RESP 18; TEMP 36.7; O2SAT 98
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
[2024-10-27] MEDS: CYCLOBENZAPRINE HCL 5 MG TABLET PO (18:45)
[2024-10-27] MEDS: ACETAMINOPHEN 500 MG TABLET 1000 MG PO (18:45)
--- OUTSIDE RECORDS SUMMARY | 2024-10-27 18:53 | XMS_ITS | Encounter Summary ---
Author Organization [facility] Care Team Providers Care Glazier Structural Glass Name Role Phone Esperanza Kowalski MD Primary Care Provider [phone] Unknown, Notinfile Primary Care Provider Unavail able Esperanza Kowalski MD Primary Care Provider [phone] Jase Farias MD Primary Care Provider [phone] Maximilian Parish MD Primary Care Provider [phone] Jase Farias MD Primary Care Provider [phone] Encounter Details Date Type Department Care Team (Latest Contact Info) Description 09/27/2017 Orders Only [facility] CLINCONV ProviderNickolas MD [address] [place] [address] Social History Tobacco Use Types Packs/Day Years Used Date Smoking Tobacco: Former Comments Unknown Sex and Gender Information Value Date Recorded Sex Assigned at Not on file Legal Sex Female 11:52 PM HOP STRAINER Gender Identity Not on file Sexual Orientation Not on file documented as of this encounter Plan of Treatment Not on file documented as of this encounter Procedures Procedure Name Priority Date/Time Associated Diagnosis Comments SCAN - LABS 09/28/2017 12:00 AM HOP STRAINER documented in this encounter Results * SCAN - LABS (09/28/2017 12:00 AM HOP STRAINER) Narrative 09/28/2017 12:00 AM HOP STRAINER Ordered by an unspecified provider. us Historical Provider Final Res ult documented in this encounter Visit Diagnoses Not on filedocumented in this encounter Additional Health Concerns Infection Onset Date Last Indicated Resolved Time COVID19 Comment:Results from 09/17 verified and to be scanned in. 09/27/2020 09/27/2020 10/20/2020 3:05 AM HOP STRAINER COVID: Recovered Comment:Added based on recent COVID infection. 10/20/2020 10/29/2020 02/17/2021 3:05 AM C DT documented as of this encounter Care Teams Glazier Structural Glass Relationship Specialty Start Date End Date Esperanza [...]
--- OUTSIDE RECORDS SUMMARY | 2024-10-27 18:53 | XMS_ITS | Referral Summary ---
Author Organization [facility] Address [address] [facility] [place] [address] Care Team Providers Care Engineer Gas Pumping Station Name Role Phone Jase Farias MD Primary Care Provider [phone] Source Comments [facility],non-owned Affiliates and Associated Physician Practices is amultiple site organization consisting of ambulatory clinics and hospital sitesin [place], [place], [place] and [place]. This disclosure is being madepursuant to the Care Everywhere program and may not contain all information available regarding this patient. Last updated 18.[facility] Encounters Date Type Department Care Team Description 07/29/2024 Travel 07/29/2024 9:30 AM CDT Office Visit 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 [address], [facility] [address] [place] [address] Hermilo Tam Che, MD Cystocele, [...] 20 MG tablet 07/12/2022 Active HYDROcodone-acetaminop hen ([place]) 5-325 MG tablet Take 1 (one) tablet [...] AM CDT Pulse 62 09/07/2022 8:26 AM AUTOMOBILE APPRAISER Temperature 36.5 ??C (97.7 ??F) 08/01/2023 9:17 AM CD T Respiratory Rate 16 02/13/2017 8:12 AM CDT Oxygen Saturation 99% 09/07/2022 8:26 AM AUTOMOBILE APPRAISER Inhaled Oxygen Concentration - - Weight 78.9 [...] on file Medical Devices Implanted Type Area Concreter Device Identifier Shelf Expiration Date Model / Serial / Lot Grft Tiss Rep Xenform 6 X 10cm - [id number] Implanted:Qty: 1 on 11/03/2013 by Hermilo Tam Che, MD at [facility] 03/30/2016 [id number] / [id number] / [id number] Graft Tissue Xenform Ftl Bvn Drml Mtrx Implanted:Qty: 1 on 02/12/2017 by Hermilo Tam Che, MD at [facility] [employer] 01/28/2019 [id number] / / [id number] Procedures Procedure Name Priority Date/Time Associated Diagnosis Comments BASIC METABOLIC PANEL (CALCIUM TOTAL) Routine 02/01/2017 1:28 PM CDT from Last 3 Months or Most Recently Relevant to Health Maintenance Results * BASIC METABOLIC PANEL (CALCIUM TOTAL) (02/01/2017 1:28 PM CDT) Glucose 94 65 - 99 mg/dL [facility] ([facility]) BUN 10 8 - 27 mg/dL [facility] ([facility]) Creatinine 0.68 0.57 - 1.00 mg/dL [facility] ([facility]) eGFR non- 95 >59 mL/min/1.7 3 [facility] ([facility]) eGFR 110 >59 mL/min/1.7 3 [facility] ([facility]) BUN/Creatinine Ratio 15 12 - 28 [facility] ([facility]) Sodium 143 134 - 144 mmol/L [facility] ([facility]) Potassium 3.8 3.5 - 5.2 mmol/L [facility] ([facility]) Chloride 106 96 - 106 mmol/L [facility] ([facility]) CO2 20 18 - 29 mmol/L [facility] ([facility]) Calcium 9.2 8.7 - 10.3 mg/dL [facility] ([facility]) Blood specimen (specimen) BLOOD SPECIMEN / Unknown 02/01/2017 1:28 PM CDT 02/01/2017 Narrative [facility] ([facility]) - 02/02/2017 7:14 AM CDT Performed at: ??[address], [place] [id number] Crew Dispatcher: Antoni Zamudio PhD, Phone: ??[phone] Jessica Darvin Ron WATER PURIFIER OPERATOR-BEATER WORKER HELPER LAB - CHEMI STRY ORDERABLES [facility] ([facility]) from Last 3 Months or Most Recently Relevant to Health Maintenance Advance Directives * Full Code (Latest Code Status on File) Date Activated Date Inactivated Comments 02/12/2017 4:27 PM 02/13/2017 10:36 AM * FULL RESUSCITATION Date Activated Date Inactivated Comments 11/03/2013 2:46 PM 11/04/2013 11:37 AM Care Teams Engineer Gas Pumping Station Relationship Specialty Start Date End Date Jase Farias MD [address] [place] [id number] PCP - General Family Medicine 08/01/23
--- OUTSIDE RECORDS SUMMARY | 2024-10-27 18:53 | XMS_ITS | Encounter Summary ---
Author Organization [facility] Care Team Providers Care Executor Of Estate Name Role Phone Esperanza Kowalski MD Primary Care Provider [phone] Unknown, Notinfile Primary Care Provider Unavail able Esperanza Kowalski MD Primary Care Provider [phone] Jase Farias MD Primary Care Provider [phone] Maximilian Parish MD Primary Care Provider [phone] Jase Farias MD Primary Care Provider [phone] Encounter Details Date Type Department Care Team (Latest Contact Info) Description 08/28/2017 Orders Only [facility] CLINCONV ProviderNickolas MD [address] [place] [address] Social History Tobacco Use Types Packs/Day Years Used Date Smoking Tobacco: Former Comments Unknown Sex and Gender Information Value Date Recorded Sex Assigned at Not on file Legal Sex Female 11:52 PM LABORER PIPELINES Gender Identity Not on file Sexual Orientation Not on file documented as of this encounter Plan of Treatment Not on file documented as of this encounter Procedures Procedure Name Priority Date/Time Associated Diagnosis Comments COLONOSCOPY - SCAN 08/28/2017 12 :00 AM LABORER PIPELINES documented in this encounter Results * COLONOSCOPY - SCAN (08/28/2017 12:00 AM LABORER PIPELINES) Narrative 08/28/2017 12:00 AM LABORER PIPELINES Ordered by an unspecified provider. us Historical Provider Final Res ult documented in this encounter Visit Diagnoses Not on filedocumented in this encounter Additional Health Concerns Infection Onset Date Last Indicated Resolved Time COVID19 Comment:Results from 09/17 verified and to be scanned in. 09/27/2020 09/27/2020 10/20/2020 3:05 AM LABORER PIPELINES COVID: Recovered Comment:Added based on recent COVID infection. 10/20/2020 10/29/2020 02/17/2021 3:05 AM C DT documented as of this encounter Care Teams Executor Of Estate Relationship Specialty Start Date End Date Esperanza [...]
--- OUTSIDE RECORDS SUMMARY | 2024-10-27 18:53 | XMS_ITS | Encounter Summary ---
Author Organization [facility] Care Team Providers Care Construction Equipment Technician Name Role Phone Esperanza Kowalski MD Primary Care Provider [phone] Unknown, Notinfile Primary Care Provider Unavail able Esperanza Kowalski MD Primary Care Provider [phone] Unknown, Notinfile Primary Care Provider Unavail able Esperanza Kowalski MD Primary Care Provider [phone] Jase Farias MD Primary Care Provider [phone] Maximilian Parish MD Primary Care Provider [phone] Jase Farias MD Primary Care Provider [phone] Encounter Details Date Type Department Care Team (Latest Contact Info) Description 08/07/2016 Orders Only [facility] CLINCONV ProviderNickolas MD [address] [place] [address] Social History Tobacco Use Types Packs/Day Years Used Date Smoking Tobacco: Never Assessed Comments Unknown Sex and Gender Information Value Date Recorded Sex Assigned at Not on file Legal Sex Female 11:52 PM BISQUE FINISHER Gender Identity Not on file Sexual Orientation Not on file documented as of this encounter Plan of Treatment Not on file documented as of this encounter Procedures Procedure Name Priority Date/Time Associated Diagnosis Comments SCAN - LABS 08/08/2016 12:00 AM BISQUE FINISHER documented in this encounter Results * SCAN - LABS (08/08/2016 12:00 AM BISQUE FINISHER) Narrative 08/08/2016 12:00 AM BISQUE FINISHER Ordered by an unspecified provider. us Historical Provider Final Res ult documented in this encounter Visit Diagnoses Not on filedocumented in this encounter Additional Health Concerns Infection Onset Date Last Indicated Resolved Time COVID19 Comment:Results from 09/17 verified and to be scanned in. 09/27/2020 09/27/2020 10/20/2020 3:05 AM BISQUE FINISHER COVID: Recovered Comment:Added based on recent COVID infection. 10/20/2020 10/29/2020 02/17/2021 3:05 AM C DT documented as of this encounter Care Teams Construction Equipment Technician Relationship Specialty Start Date End Date Esperanza [...]
--- OUTSIDE RECORDS SUMMARY | 2024-10-27 18:53 | XMS_ITS | Encounter Summary ---
Author Organization [facility] Care Team Providers Care Seals Engraver Name Role Phone Esperanza Kowalski MD Primary Care Provider [phone] Unknown, Notinfile Primary Care Provider Unavail able Esperanza Kowalski MD Primary Care Provider [phone] Jase Farias MD Primary Care Provider [phone] Maximilian Parish MD Primary Care Provider Jase Farias MD Primary Care Provider [phone] Encounter Details Date Type Department Care Team (Latest Contact Info) Description 07/19/2017 Orders Only [facility] CLINCONV ProviderNickolas MD [address] [place] [address] Social History Tobacco Use Types Packs/Day Years Used Date Smoking Tobacco: Former Comments Unknown Sex and Gender Information Value Date Recorded Sex Assigned at Not on file Legal Sex Female 11:52 PM QUALITY IMPROVEMENT CONSULTANT Gender Identity Not on file Sexual Orientation [...] scanned in. 09/27/2020 09/27/2020 10/20/2020 3:05 AM QUALITY IMPROVEMENT CONSULTANT COVID: Recovered Comment:Added based on recent COVID infection. 10/20/2020 10/29/2020 02/17/2021 3:05 AM C DT documented as of this encounter Care Teams Seals Engraver Relationship Specialty Start Date End Date Esperanza [...]
--- OUTSIDE RECORDS SUMMARY | 2024-10-27 18:53 | XMS_ITS | Referral Summary ---
Author Organization [address] Address [facility] [place] [address] Care Team Providers Care Curator Name Role Phone Jase Farias MD Primary Care Provider [phone] Allergies Active Allergy Reactions Criticality Noted Date [...] 10/30 Assessment & Plan (10/30/2022 3:31 PM OUTREACH LIBRARIAN): Patient here for annual Medicare wellness visit and for review of complete medical problem list. All the elements of the plan were completed as outlined by [facility]. A copy of the prevention plan was [...] mg bid Acute respiratory failure with hypoxia (CMS/[facility]) 09/27/2020 Pneumonia due to COVID-19 virus 09/27/2020 [...] finding. Assessment & Plan (09/13/2020 5:23 PM OUTREACH LIBRARIAN): S.p Ozurdex OD 10/19/19 PLAN Ozurdex Os [...] visit Assessment & Plan (08/19/2018 10:09 AM OUTREACH LIBRARIAN): Stable, continue observation. Uveitis 08/19/2018 Assessment & Plan (04/28/2019 11:31 AM CDT): Stable Cont Durezol BID right eye (OD) and every day (QD) left eye (OS) Stressed compliance with drops (gtts) and follow up Follow up with Dr Cleveland Mac oct Ou Assessment & Plan (08/19/2018 10:11 AM OUTREACH LIBRARIAN): Chronic anterior uveitis and intermediate uveitis both [...] on file Legal Sex Female 11:52 PM OUTREACH LIBRARIAN Gender Identity Not on file Sexual Orientation Not on file Last Filed Vital Signs Vital Sign Reading Time Taken Comments Blood Pressure 122/80 10/30/2022 2:42 PM OUTREACH LIBRARIAN Pulse 84 10/30/2022 2:42 PM OUTREACH LIBRARIAN Temperature 36.3 ??C (97.3 ??F) 07/12/2022 3:41 PM CD T Respiratory Rate 16 10/30/2022 2:42 PM OUTREACH LIBRARIAN Oxygen Saturation 98% 07/12/2022 3:41 PM CDT Inhaled Oxygen Concentration - - Weight 89.1 kg (196 lb 8 oz) 10/30/2022 2:42 PM OUTREACH LIBRARIAN Height 165.1 cm (5' 5 ) 10/30/2022 2:42 PM OUTREACH LIBRARIAN Body Mass Index 32.7 10/30/2022 2:42 PM OUTREACH LIBRARIAN Plan of Treatment Not on file Procedures [...] age 40, based on guidelines of the [employer] (ACR Practice Parameter for the Performance of Screening and Diagnostic Mammography) and [employer] Gynec[employer]. For women [...] to Subscriber:Self Name:Paola Lopez Payer ID:[id number] (NAIC) Type:[facility] MED[facility] Address: [place] [phone] HMO REF Member Subscriber Plan / Payer (Ef fective 2021-Present) Name:Paola Lopez Relation to Subscriber:Self Name:Paola Lopez Payer ID:[id number] (NAIC) Type:[facility] MEDIC[facility] Address: [place] [phone] MEDICARE SOLUTIONS Advance Directives For more information, please contact: [phone] * Full Code (Latest Code Status on File) Date Activated Date Inactivated Comments 09/27/2020 3:01 AM 10/06/2020 9:59 PM Care Teams Curator Relationship Specialty Start Date End Date Jase Farias MD PCP - General Family Medicine 01/17/24
--- OUTSIDE RECORDS SUMMARY | 2024-10-27 18:53 | XMS_ITS | Clinical Summary ---
Author Organization [facility] [employer] Address [address] [place] [address] Care Team Providers Care Supervisor Stripping Name Role Phone Jase Farias MD Primary Care Provider [phone] Source Comments [facility] [employer],non-owned Affiliates and Associated Physician Practices is amultiple site organization consisting of ambulatory clinics and hospital sitesin [place], [place], [place]. This disclosure is being madepursuant to the Care Everywhere program and may not contain all information available regarding this patient. Last updated 18.[facility] [employer] Allergies Active Allergy Reactions Criticality Noted Date [...] 20 MG tablet 07/12/2022 Active HYDROcodone-acetaminop hen ([place]) 5-325 MG tablet Take 1 (one) tablet [...] CDT Office Visit [facility] - AUTOMATION AND CONTROLS INSTRUCTOR [phone] Hermilo Tam Che, MD Cystocele, midline [...] AM CDT Pulse 62 09/07/2022 8:26 AM BIOLOGY INSTRUCTOR Temperature 36.5 ??C (97.7 ??F) 08/01/2023 9:17 AM CD T Respiratory Rate 16 02/13/2017 8:12 AM CDT Oxygen Saturation 99% 09/07/2022 8:26 AM BIOLOGY INSTRUCTOR Inhaled Oxygen Concentration - - Weight 78.9 [...] this topic Medical Devices Implanted Type Area News Agent Device Identifier Shelf Expiration Date Model / Serial / Lot Grft Tiss Rep Xenform 6 X 10cm - [id number] Implanted:Qty: 1 on 11/03/2013 by Hermilo Tam Che, MD at [facility] [employer] [place] [employer] 03/30/2016 [id number] / [id number] / [id number] Graft Tissue Xenform Ftl Bvn Drml Mtrx Implanted:Qty: 1 on 02/12/2017 by Hermilo Tam Che, MD at [facility] [employer] [place] [employer] 01/28/2019 [id number] / / [id number] Procedures Procedure Name Priority Date/Time Associated Diagnosis Comments BASIC METABOLIC PANEL (CALCIUM TOTAL) Routine 02/01/2017 1:28 PM CDT from Last 3 Months or Most Recently Relevant to Health Maintenance Results * BASIC METABOLIC PANEL (CALCIUM TOTAL) (02/01/2017 1:28 PM CDT) Glucose 94 65 - 99 mg/dL [facility] (BEAKER) BUN 10 8 - 27 mg/dL [facility] (BEAKER) Creatinine 0.68 0.57 - 1.00 mg/dL [facility] (BEAKER) eGFR non- 95 >59 mL/min/1.7 3 [facility] (BEAKER) eGFR 110 >59 mL/min/1.7 3 [facility] (BEAKER) BUN/Creatinine Ratio 15 12 - 28 [facility] (BEAKER) Sodium 143 134 - 144 mmol/L [facility] (BEAKER) Potassium 3.8 3.5 - 5.2 mmol/L [facility] (BEAKER) Chloride 106 96 - 106 mmol/L [facility] (BEAKER) CO2 20 18 - 29 mmol/L [facility] (BEAKER) Calcium 9.2 8.7 - 10.3 mg/dL [facility] (BEAKER) Blood specimen (specimen) BLOOD SPECIMEN / Unknown 02/01/2017 1:28 PM CDT 02/01/2017 Narrative [facility] (BEAKER) - 02/02/2017 7:14 AM CDT Performed at: ??01 - [facility] ??[id number] Parts Classifier: Antoni Zamudio PhD, Phone: ??[phone] Jessica Velasquez INSPECTOR CRYSTAL-NEWSPAPER PUBLISHER LAB - CHEMI STRY ORDERABLES [facility] OniBEMURTAZA) from Last 3 Months or Most Recently Relevant to Health Maintenance Advance Directives * Full Code (Latest Code Status on File) Date Activated Date Inactivated Comments 02/12/2017 4:27 PM 02/13/2017 10:36 AM * FULL RESUSCITATION Date Activated Date Inactivated Comments 11/03/2013 2:46 PM 11/04/2013 11:37 AM Care Teams Supervisor Stripping Relationship Specialty Start Date End Date Jase Farias MD [address] [place] [phone] PCP - General Family Medicine 08/01/23
--- OUTSIDE RECORDS SUMMARY | 2024-10-27 18:53 | XMS_ITS | Patient Health Summary ---
Author Organization [facility] [employer] Address [address] [place] [address] Care Team Providers Care Speech Communication Instructor Name Role Phone Jase Farias MD Primary Care Provider [phone] Note from [facility],non-owned Affiliates and Associated Physician Practices is amultiple site organization consisting of ambulatory clinics and hospital sitesin [place], [place], [place] and [place]. This disclosure is being madepursuant to the Care Everywhere program and may not contain all information available regarding this patient. Last updated 18.[facility] Allergies * Sulfamethoxazole W-Trimethoprim(Swelling) * Tramadol(Other) -Low [...] (Pepcid) 20 MG tablet(Started 07/12/2022) * HYDROcodone-acetaminophen ([place]) 5-325 MG tablet(Started 08/30/2022) Take 1 (one) [...] AM CDT Pulse 62 09/07/2022 8:26 AM SUPERVISORY TRAINING SPECIALIST Temperature 36.5 ??C (97.7 ??F) 08/01/2023 9:17 AM CD T Respiratory Rate 16 02/13/2017 8:12 AM CDT Oxygen Saturation 99% 09/07/2022 8:26 AM SUPERVISORY TRAINING SPECIALIST Inhaled Oxygen Concentration - - Weight 78.9 kg (174 lb) 07/29/2024 9:16 AM CDT Height 165.1 cm (5' 5 ) 07/29/2024 9:16 AM CDT Body Mass Index 28.96 07/29/2024 9:16 AM CDT Medical Devices Implanted Type Area Manager Android Device Identifier Shelf Expiration Date Model / Serial / Lot Grft Tiss Rep Xenform 6 X 10cm - [id number] Implanted:Qty: 1 on 11/03/2013 by Hermilo Tam Che, MD at [facility] [employer] [place] 03/30/2016 [id number] / [id number] / [id number] Graft Tissue Xenform Ftl Bvn Drml Mtrx Implanted:Qty: 1 on 02/12/2017 by Hermilo Tam Che, MD at [facility] [employer] 01/28/2019 [id number] / / [id number] Procedures * CARDIAC RHYTHM STRIP ORDER(Performed 02/14/2017) [...] included. WBC 5.1 3.4 - 10.8 x10E3/uL [facility] (BEAKER) RBC 4.61 3.77 - 5.28 x10E6/uL [facility] (BEAKER) Hemoglobin 12.2 11.1 - 15.9 g/dL [facility] (BEAKER) Hematocrit 36.0 34.0 - 46.6 % [facility] (BEAKER) MCV 78(L) 79 - 97 [...] Unknown 02/01/2017 1:28 PM CDT 02/01/2017 Narrative [facility] (BEAKER) - 02/02/2017 7:14 AM CDT Performed at: ??01 - [facility] [address] ??[id number] Manager Ed: Antoni Zamudio PhD, Phone: ??[phone] Jessica Velasquez RESAW FEEDER-HUMAN RESOURCES PSYCHOLOGIST LAB - HEMAT OLOGY ORDERABLES [facility] MARTITA LLANOS) * BASIC METABOLIC PANEL (CALCIUM TOTAL) (02/01/2017 1:28 PM CDT) Only the most recent of2 resultswithin the time period is included. Glucose 94 65 - 99 mg/dL [facility] (BEAKER) BUN 10 8 - 27 mg/dL [facility] (BEAKER) Creatinine 0.68 0.57 - 1.00 mg/dL [facility] (BEAKER) eGFR non- 95 >59 mL/min/1.7 3 [facility] (BEAKER) eGFR 110 >59 mL/min/1.7 3 [facility] (BEAKER) BUN/Creatinine Ratio 15 12 - 28 [facility] (BEAKER) Sodium 143 134 - 144 mmol/L [facility] (BEAKER) Potassium 3.8 3.5 - 5.2 mmol/L [facility] (BEAKER) Chloride 106 96 - 106 mmol/L [facility] (BEAKER) CO2 20 18 - 29 mmol/L [facility] (BEAKER) Calcium 9.2 8.7 - 10.3 mg/dL [facility] (BEAKER) Blood specimen (specimen) BLOOD SPECIMEN / Unknown 02/01/2017 1:28 PM CDT 02/01/2017 Narrative [facility] (BEMURTAZA) - 02/02/2017 7:14 AM CDT Performed at: ??01 - [facility] ??[id number] Manager Ed: Antoni Zamudio PhD, Phone: ??[phone] Jessica Velasquez RESAW FEEDER-HUMAN RESOURCES PSYCHOLOGIST LAB - CHEMI STRY ORDERABLES [facility] MARTITA LLANOS) * GROSS + MICRO EXAM (STL) (11/03/2013 9:57 AM SUPERVISORY TRAINING SPECIALIST) Case Report Surgical Pathology Report ? Case: [id number] ? Authorizing Provider: ??Hermilo Tam MD ?Ordering Provider: ?? Hermilo Tam MD ? Ordering Location: ? [facility] ? Collected: ? 11/03/2013 ??9:57 AM ? Pathologist: ? Lucia Leach MD ? Received: ?11/03/2013 11:35 AM ?Signed Out: ?11/04/2013 ??3:30 PM (Final) ? Specimen: ?Uterus w Tubes, uterus,cervix, and left tube ? 11/04/2013 3:30 PM [facility] Final Diagnosis 1. Uterus, cervix, hysterectomy: -- No pathologic diagnosis Uterus, endometrium, hysterectomy: -- Inactive pattern Uterus, myometrium, hysterectomy: -- Atypical leiomyoma, see note Uterus, serosa, hysterectomy: -- Fibrous adhesions Fallopian tube, left, salpingectomy: -- No pathologic diagnosis OA/GM/piero 11/04/2013 3:30 PM [facility] Gross Description The specimen is received [...] It appears patent with a fimbriated end. Senior Military Analyst sections are submitted as follows: A1. Anterior cervix A2. Posterior cervix A3. Anterior endometrium, myometrium, serosa A4. Anterior endometrium, myometrium, serosa (including leiomyoma) A5. Posterior endometrium, myometrium, serosa (including 0.3 cm leiomyoma) A6. Entire fallopian tube section OA/na 11/04/2013 3:30 PM [facility] Microscopic Description Microscopic examination of the [...] are histologically unremarkable. OA/GM/piero 11/04/2013 3:30 PM [facility] Note Atypical leiomyoma is a variant [...] Pathol. 1996;21(11):1261-7 0 OA/GM 11/04/2013 3:30 PM [facility] Synoptic Report 11/04/2013 3:30 PM [facility] Pathology/Cytolo gy UTERUS AND FALLOPIAN TUBES, CS / Unknown 11/03/2013 9:57 AM SUPERVISORY TRAINING SPECIALIST 11/03/2013 11:35 AM SUPERVISORY TRAINING SPECIALIST Hermilo Tam MD LAB - PATHOLOGY/CYTO LOGY ORDERABLES [facility] [address] [place] [address] * CULTURE URINE (11/03/2013 9:11 AM SUPERVISORY TRAINING SPECIALIST) Culture No Growth (<1,000 CFU/mL) 11/05/2013 11:34 AM SUPERVISORY TRAINING SPECIALIST [facility]CRO[facility] Urine URINE SPECIMEN COLLECTION, CATHETERIZED / Unknown Collection / Unknown 11/03/2013 9:11 AM SUPERVISORY TRAINING SPECIALIST 11/03/2013 11:34 AM SUPERVISORY TRAINING SPECIALIST Hermilo Tam MD LAB - MICROBIOLOGY O RDERABLES [facility] MICROBIOLOGY [address] [place] [address], [facility] * PATHOLOGY/GENETICS HISTORICAL-ONBASE (11/03/2013) 11/03/2013 Narrative [facility] - 11/05/2013 8:12 AM SUPERVISORY TRAINING SPECIALIST Historical Provider LAB - CHEMISTRY O RDERABLES [facility] [address] [place] [address], [facility] * BLOOD TYPE VERIFICATION (10/30/2013 11:21 AM SUPERVISORY TRAINING SPECIALIST) ABO O 10/30/2013 11:54 AM SUPERVISORY TRAINING SPECIALIST [facility] LAB Rh Type Positive 10/30/2013 11:54 AM SUPERVISORY TRAINING SPECIALIST [facility] Blood Bank BLOOD SPECIMEN / Unknown 10/30/2013 11:21 AM SUPERVISORY TRAINING SPECIALIST 10/30/2013 11:21 AM SUPERVISORY TRAINING SPECIALIST Hermilo Tam MD LAB - BLOOD BANK ORD ERABLES Performing Organization Address City/[facility]/ZIP Co de Phone Number [facility] * TYPE + SCREEN PANEL (10/30/2013 10:39 AM SUPERVISORY TRAINING SPECIALIST) ABO O 10/30/2013 11:53 AM SUPERVISORY TRAINING SPECIALIST [facility] Rh Type Positive 10/30/2013 11:53 AM SUPERVISORY TRAINING SPECIALIST [facility] Comment:Historical blood typ e on record. Antibody Screen Negative 10/30/2013 11:53 AM SUPERVISORY TRAINING SPECIALIST [facility] Blood Bank BLOOD SPECIMEN / Unknown Venipuncture / Unknown 10/30/2013 10:39 AM SUPERVISORY TRAINING SPECIALIST 10/30/2013 10:51 AM SUPERVISORY TRAINING SPECIALIST Hermilo Tam MD LAB - BLOOD BANK ORD ERABLES [facility] * (ABNORMAL) URINALYSIS W/MICROSCOPIC NO CULTURE (10/07/2013) Color UA YELLOW YELLOW [facility]) Appearance CLEAR CLEAR [facility]) Specific [place] Urine 1.016 1.001 - 1.035 [facility]) pH Urine 6.5 5.0 - 8.0 [facility]) Glucose UA NEGATIVE NEGATIVE [facility]) Bilirubin UA NEGATIVE NEGATIVE [facility]) Ketones NEGATIVE NEGATIVE [facility]) Blood UA 1+(A) NEGATIVE [facility]) Protein UA NEGATIVE NEGATIVE [facility]) Nitrite UA NEGATIVE NEGATIVE [facility] Leukocyte Esterase NEGATIVE NEGATIVE [facility]) WBC Urine NONE SEEN < OR = 5 /HPF [facility]) RBC Urine 0-3 < OR = 3 /HPF [facility]) Squamous Epithelial Cells UA NONE SEEN < OR = 5 /HPF [facility]) Bacteria UA NONE SEEN NONE SEEN /HPF [facility]) Hyaline Casts UA NONE SEEN NONE SEEN /LPF [facility]) Comment: Test Performed at: [facility] [id number] [place] [address] ??[id number] AMISH MONTGOMERY DO,MPH Urine specimen (specimen) URINE SPECIMEN COLLECTION, CATHETERIZED / Unknown 10/07/2013 10/08/2013 5:18 AM SUPERVISORY TRAINING SPECIALIST Hermilo Tam MD LAB - URINALYSIS ORD ERABLES [facility]) Care Teams Speech Communication Instructor Relationship Specialty Start Date End Date Jase Farias MD [address] [place], [place] [id number] PCP - General Family Medicine 08/01/23
--- OUTSIDE RECORDS SUMMARY | 2024-10-27 18:53 | XMS_ITS | Encounter Summary ---
Author Organization [facility] Facility Care Team Providers Care Senior Credit Officer Name Role Phone Esperanza Kowalski MD Primary Care Provider [phone] Unknown, Notinfile Primary Care Provider Unavail able Esperanza Kowalski MD Primary Care Provider [phone] Unknown, Notinfile Primary Care Provider Unavail able Esperanza Kowalski MD Primary Care Provider [phone] Jase Farias MD Primary Care Provider [phone] Maximilian Parish MD Primary Care Provider [phone] Jase Farias MD Primary Care Provider [phone] Encounter Details Date Type Department Care Team (Latest Contact Info) Description 05/08/2016 Orders Only [facility] CLINCONV ProviderNickolas MD [address] [place] [address] Social History Tobacco Use Types Packs/Day Years Used Date Smoking Tobacco: Never Assessed Comments Unknown Sex and Gender Information Value Date Recorded Sex Assigned at Not on file Legal Sex Female 11:52 PM DESKTOP PUBLISHING SPECIALIST Gender Identity Not on file Sexual Orientation [...] scanned in. 09/27/2020 09/27/2020 10/20/2020 3:05 AM DESKTOP PUBLISHING SPECIALIST COVID: Recovered Comment:Added based on recent COVID infection. 10/20/2020 10/29/2020 02/17/2021 3:05 AM C DT documented as of this encounter Care Teams Senior Credit Officer Relationship Specialty Start Date End Date Esperanza [...]
--- OUTSIDE RECORDS SUMMARY | 2024-10-27 18:53 | XMS_ITS | Encounter Summary ---
Author Organization [facility] Facility Care Team Providers Care Supervisor Detasseling Crew Name Role Phone Esperanza Kowalski MD Primary Care Provider [phone] Jase Farias MD Primary Care Provider [phone] Maximilian Parish MD Primary Care Provider [phone] Jase Farias MD Primary Care Provider [phone] Encounter Details Date Type Department Care Team (Latest Contact Info) Description 04/24/2018 Orders Only [facility] CLINCONV ProviderNickolas MD [address] [place] [address] Social History Tobacco Use Types Packs/Day Years Used Date Smoking Tobacco: Former Comments Unknown Sex and Gender Information Value Date Recorded Sex Assigned at Not on file Legal Sex Female 11:52 PM MOVIE EXTRA Gender Identity Not on file Sexual Orientation [...] scanned in. 09/27/2020 09/27/2020 10/20/2020 3:05 AM MOVIE EXTRA COVID: Recovered Comment:Added based on recent COVID infection. 10/20/2020 10/29/2020 02/17/2021 3:05 AM C DT documented as of this encounter Care Teams Supervisor Detasseling Crew Relationship Specialty Start Date End Date Esperanza Kowalski MD PCP - General 02/18/18 10/27/19 Jase Farias MD PCP - General Family Medicine 10/28/19 10/09/22 Maximilian Parish MD PCP - General Family Medicine 10/10/22 03/27/23 Jase Farias MD PCP - General Family Medicine 01/17/24 documented as of this encounter
--- OUTSIDE RECORDS SUMMARY | 2024-10-27 18:53 | XMS_ITS | Encounter Summary ---
Author Organization [facility] Care Team Providers Care Aviation Safety Inspector Name Role Phone Esperanza Kowalski MD Primary Care Provider [phone] Jase Farias MD Primary Care Provider [phone] Maximilian Parish MD Primary Care Provider [phone] Jase Farias MD Primary Care Provider [phone] Encounter Details Date Type Department Care Team (Latest Contact Info) Description 05/10/2018 Orders Only [facility] CLINCONV ProviderNickolas MD [address] [place], [place] [id number] Social History Tobacco Use Types Packs/Day Years Used Date Smoking Tobacco: Former Comments Unknown Sex and Gender Information Value Date Recorded Sex Assigned at Not on file Legal Sex Female 11:52 PM PRICE ECONOMIST Gender Identity Not on file Sexual Orientation [...] scanned in. 09/27/2020 09/27/2020 10/20/2020 3:05 AM PRICE ECONOMIST COVID: Recovered Comment:Added based on recent COVID infection. 10/20/2020 10/29/2020 02/17/2021 3:05 AM C DT documented as of this encounter Care Teams Aviation Safety Inspector Relationship Specialty Start Date End Date Esperanza Kowalski MD PCP - General 02/18/18 10/27/19 Jase Farias MD PCP - General Family Medicine 10/28/19 10/09/22 Maximilian Parish MD PCP - General Family Medicine 10/10/22 03/27/23 Jase Farias MD PCP - General Family Medicine 01/17/24 documented as of this encounter
--- OUTSIDE RECORDS SUMMARY | 2024-10-27 18:53 | XMS_ITS | Clinical Summary ---
Author Organization [address] Address formerly [facility] [place] [address] Care Team Providers Care Customer Pricing Manager Name Role Phone Jase Farias MD Primary Care Provider Allergies Active Allergy Reactions Criticality Noted Date [...] 10/30 Assessment & Plan (10/30/2022 3:31 PM MACHINE STRIPPER CUTTER): Patient here for annual Medicare wellness visit and for review of complete medical problem list. All the elements of the plan were completed as outlined by [facility]. A copy of the prevention plan [...] mg bid Acute respiratory failure with hypoxia (CMS/[facility]) 09/27/2020 Pneumonia due to COVID-19 [...] finding. Assessment & Plan (09/13/2020 5:23 PM MACHINE STRIPPER CUTTER): S.p Ozurdex OD 10/19/19 PLAN Ozurdex Os [...] visit Assessment & Plan (08/19/2018 10:09 AM MACHINE STRIPPER CUTTER): Stable, continue observation. Uveitis 08/19/2018 Assessment & Plan (04/28/2019 11:31 AM CDT): Stable Cont Durezol BID right eye (OD) and every day (QD) left eye (OS) Stressed compliance with drops (gtts) and follow up Follow up with Dr Cleveland Mac oct Ou Assessment & Plan (08/19/2018 10:11 AM MACHINE STRIPPER CUTTER): Chronic anterior uveitis and intermediate uveitis both [...] on file Legal Sex Female 11:52 PM MACHINE STRIPPER CUTTER Gender Identity Not on file Sexual Orientation Not on file Obstetrics History Para Term AB IAB SAB Ectopic Multiple Livin g Live Births 4 3 3 Date Outcome GA Total Labor Labor/2nd/3rd Weight Sex Type Anes PTL Mary A1 A5 Name Clin Term Term Term Last Filed Vital Signs Vital Sign Reading Time Taken Comments Blood Pressure 122/80 10/30/2022 2:42 PM MACHINE STRIPPER CUTTER Pulse 84 10/30/2022 2:42 PM MACHINE STRIPPER CUTTER Temperature 36.3 ??C (97.3 ??F) 07/12/2022 3:41 PM CD T Respiratory Rate 16 10/30/2022 2:42 PM MACHINE STRIPPER CUTTER Oxygen Saturation 98% 07/12/2022 3:41 PM CDT Inhaled Oxygen Concentration - - Weight 89.1 kg (196 lb 8 oz) 10/30/2022 2:42 PM MACHINE STRIPPER CUTTER Height 165.1 cm (5' 5 ) 10/30/2022 2:42 PM MACHINE STRIPPER CUTTER Body Mass Index 32.7 10/30/2022 2:42 PM MACHINE STRIPPER CUTTER Plan of Treatment Health Maintenance Due Date [...] age 41, based on guidelines of the [employer] (ACR Practice Parameter for the Performance of Screening and Diagnostic Mammography) and [employer]. For women [...] PROCEDURES Final Resu lt * COLONOSCOPY (08/28/2017) [facility] Colonoscopy Normal Historical Provider HEALTH MAINTENANCE Final Result from Last 3 Months or Most Recently Relevant to Health Maintenance Insurance R [facility] Address: [facility] [id number] [place] [id number] [facility]IC[facility] SOLUTIONS Advance Directives For more information, please contact: [phone] * Full Code (Latest Code Status on File) Date Activated Date Inactivated Comments 09/27/2020 3:01 AM 10/06/2020 9:59 PM Care Teams Customer Pricing Manager Relationship Specialty Start Date End Date Jase Farias MD PCP - General Family Medicine 01/17/24
--- OUTSIDE RECORDS SUMMARY | 2024-10-27 18:53 | XMS_ITS | Encounter Summary ---
Author Organization [facility] Care Team Providers Care Magistrate Name Role Phone Esperanza Kowalski MD Primary Care Provider [phone] Unknown, Notinfile Primary Care Provider Unavail able Esperanza Kowalski MD Primary Care Provider [phone] Unknown, Notinfile Primary Care Provider Unavail able Esperanza Kowalski MD Primary Care Provider [phone] Jase Farias MD Primary Care Provider [phone] Maximilian Parish MD Primary Care Provider [phone] Jase Farias MD Primary Care Provider [phone] Encounter Details Date Type Department Care Team (Latest Contact Info) Description 09/15/2016 Orders Only [facility] CLINCONV ProviderNickolas MD [address] [place] [id number] Social History Tobacco Use Types Packs/Day Years Used Date Smoking Tobacco: Never Assessed Comments Unknown Sex and Gender Information Value Date Recorded Sex Assigned at Not on file Legal Sex Female 11:52 PM RIVET HOLE MACHINE OPERATOR Gender Identity Not on file Sexual Orientation Not on file documented as of this encounter Plan of Treatment Not on file documented as of this encounter Procedures Procedure Name Priority Date/Time Associated Diagnosis Comments SCAN - LABS 09/15/2016 12:00 AM RIVET HOLE MACHINE OPERATOR documented in this encounter Results * SCAN - LABS (09/15/2016 12:00 AM RIVET HOLE MACHINE OPERATOR) Narrative 09/15/2016 12:00 AM RIVET HOLE MACHINE OPERATOR Ordered by an unspecified provider. us Historical Provider Final Res ult documented in this encounter Visit Diagnoses Not on filedocumented in this encounter Additional Health Concerns Infection Onset Date Last Indicated Resolved Time COVID19 Comment:Results from 09/17 verified and to be scanned in. 09/27/2020 09/27/2020 10/20/2020 3:05 AM RIVET HOLE MACHINE OPERATOR COVID: Recovered Comment:Added based on recent COVID infection. 10/20/2020 10/29/2020 02/17/2021 3:05 AM C DT documented as of this encounter Care Teams Magistrate Relationship Specialty Start Date End Date Esperanza [...]
--- OUTSIDE RECORDS SUMMARY | 2024-10-27 18:54 | XMS_ITS | Clinical Summary ---
Author Organization [facility] Address [address] [place] [address]. [place], [place] [id number] [place], [place] [id number] Care Team Providers Care Party Planner Name Role Phone Alina Farias MD Primary Care Provider [phone] Jose Gracia MD Unavailable [phone] Allergies No known active allergies Medications amlodipine [...] Most Recently Relevant to Health Maintenance Insurance [facility] [place] [address] [employer] Care Teams Party Planner Relationship Specialty Start Date End Date Alina Farias MD PCP - General FAMILY PRACTICE 12/27/22 Jose Gracia MD [address] [place] [id number] CARDIOVASCULAR DISEASE 11/16/23
== END 2024-10-27 18:57 | disposition home or self-care (01) ==
LOC: ANHED 18:51
PROVIDERS: Emergency Provider Physician Assistant; PCP Family Medicine
DX: S13.4XXA Sprain of ligaments of cervical spine, initial encounter (principal); S39.012A Strain of muscle, fascia and tendon of lower back, initial encounter; S16.1XXA Strain of muscle, fascia and tendon at neck level, initial encounter; S06.0XAA Concussion with loss of consciousness status unknown, initial encounter; V89.2XXA Person injured in unspecified motor-vehicle accident, traffic, initial encounter; Z87.891 Personal history of nicotine dependence
CPT/HCPCS: 70450; 72125; 72128; 72131; 73030; 99284; A9270

== ENCOUNTER 2025-02-10 13:50 | Outpatient (CLI) | payer MEDICARE, SELFPAY ==
--- NOTE | ~2025-02-10 | XR_ITS ---
[id number] Ordering provider: Jase Farias, History: . Diabetic peripheral neuropathy . Comparison: None. FINDINGS: VERTEBRAL BODIES: Normal height and alignment. No visible fracture or subluxation. The dens is intact . Degenerative changes of the spine. DISK SPACES: Severe narrowing of the disc C5-C6 and C6-C7. Multilevel uncovertebral joint osteoarthri tic changes. PARASPINOUS SOFT TISSUES: No prevertebral soft tissue swelling. IMPRESSION: No acute osseous abnormality cervical spine. Severe narrowing of the disc C5-C6 and C6-C7. Multilevel uncovertebral joint osteoarthritic changes. Reviewed, dictated and finalized at location A.
== END 2025-02-10 13:51 | disposition home or self-care (01) ==
PROVIDERS: PCP Family Medicine; Visit Provider Family Medicine
DX: M48.02 Spinal stenosis, cervical region (principal); M47.812 Spondylosis without myelopathy or radiculopathy, cervical region; E11.42 Type 2 diabetes mellitus with diabetic polyneuropathy
CPT/HCPCS: 72040

== ENCOUNTER 2025-07-17 08:30 | Outpatient (CLI) | payer MEDICARE, SELFPAY ==
--- NOTE | ~2025-07-17 | MR_ITS ---
EXAMINATION: MR lumbar spine wo con DATE: 07/17/2025 09:06 INDICATION: Lumbar radiculopathy. TECHNIQUE: Magnetic resonance imaging (MRI) of the lumbar spine was performed without intravenous contrast. Sequences included sagittal T2-weighted FSE, sagittal T2-weighted FS FSE, sagittal T1-weighted FSE, and axial T2-weighted FSE. COMPARISON: CT 10/27/2024 FINDINGS: L5 is a transitional segment. There is 3 mm anterolisthesis of L3 on L4 and 6 mm anterolisthesis of L4 on L5. Vertebral body heights are normal. There is mildly decreased disc height at L3-L4 and moderately decreased disc height at L4-L5. The distal spinal cord signal intensity is normal. The conus medullaris is at T12-L1. The following disc levels are specifically discussed: L1-L2: The disc is bulging. There is moderate bilateral facet joint osteoarthritis. There is mild bilateral neural foraminal stenosis. There is mild central canal stenosis. L2-L3: The disc is bulging. There is severe bilateral facet joint osteoarthritis. There is mild bilateral neural foraminal stenosis. There is mild central canal stenosis. L3-L4: The disc is bulging and has an annular fissure. There is severe bilateral facet joint osteoarthritis. There is mild bilateral neural foraminal stenosis. There is no central canal stenosis. L4-L5: The disc is bulging and has an annular fissure. There is severe bilateral facet joint osteoarthritis. There is moderate bilateral neural foraminal stenosis. There is mild central canal stenosis. L5-S1: The disc does not extend beyond the endplate margin. There is no facet joint osteoarthritis. There is no neural foraminal stenosis. There is no central canal stenosis. IMPRESSION: 1. Moderate lumbar spondylosis. Reviewed, dictated and finalized at location E.
== END 2025-07-17 08:31 | disposition home or self-care (01) ==
LOC: MICIMG 08:30
PROVIDERS: PCP Family Medicine; Visit Provider Nurse Practitioner Family
DX: M47.816 Spondylosis without myelopathy or radiculopathy, lumbar region (principal)
CPT/HCPCS: 72148